=== PATIENT | male | born 1940 | race Caucasian/White ===

== ENCOUNTER 2024-07-16 11:08 | Outpatient (AMB) | payer MEDICARE, BC, SELFPAY ==
[2024-07-16 11:15] VITALS: BP 121/66; PULSE 53; RESP 18; TEMP 36.5; O2SAT 97; BMI 27.5
--- NOTE | 2024-07-16 11:15 | ORTHONT_ITS ---
Vital signs 07/16/24 11:15 Height 1.7 m Height Method Stated Weight 79.577 kg Weight Measurement Method Standing Scale BMI 27.5 BP 121/66 Blood Pressure Source Automatic Cuff Blood Pressure Location Right Upper Arm Position Sitting Respiration 18 Pulse 53 L Pulse Source Monitor Temp 97.7 F Temp Source Temporal Artery Scan Pulse Oximetry (%) 97 Oxygen Delivery Method Room Air Med/Allergies Allergies & Medications Allergies Penicillins Allergy (Unknown, Verified 07/16/24 11:15) RASH Sulfa (Sulfonamide Antibiotics) Allergy (Unknown, Verified 07/16/24 11:15) RASH Medication Reconciliation benazepril 20 mg tablet 20 mg PO QDAY ##0 12/09/13 [History Confirmed 07/16/24] paroxetine HCl 30 mg tablet 40 mg PO QDAY ##0 12/09/13 [History Confirmed 07/16/24] calcitriol 0.5 mcg capsule 0.5 mcg PO HS ##90 08/20/17 [History Confirmed 07/16/24] pantoprazole 40 mg tablet,delayed release 40 mg PO QDAY ##90 08/20/17 [History Confirmed 07/16/24] hydralazine 50 mg tablet 50 mg PO BID 12/06/21 [History Confirmed 07/16/24] rosuvastatin 20 mg tablet 10 mg PO HS 12/06/21 [History Confirmed 07/16/24] aspirin 81 mg chewable tablet 81 mg PO DAILY #1 tab 12/08/21 [Rx Confirmed 07/16/24] hydrochlorothiazide 12.5 mg capsule 12.5 mg PO QDAY 12/08/21 [History Confirmed 07/16/24] amiodarone 200 mg tablet 200 mg PO DAILY 06/08/24 [History Confirmed 07/16/24] allopurinol 100 mg tablet 100 mg PO 1XD 06/16/24 [History Confirmed 07/16/24] apixaban 5 mg tablet (Eliquis) 5 mg PO BID 06/16/24 [History Confirmed 07/16/24] metoprolol succinate 50 mg tablet,extended release 24 hr 50 mg PO QDAY 06/16/24 [History Confirmed 07/16/24] levofloxacin 250 mg tablet 250 mg PO QDAY #10 tabs 06/17/24 [Rx Confirmed 07/16/24] tamsulosin 0.4 mg capsule 0.4 mg PO QDAY 30 days #30 caps 06/17/24 [Rx Confirmed 07/16/24] dutasteride 0.5 mg capsule (Avodart) 0.5 mg PO QDAY 06/29/24 [History Confirmed 07/16/24] Subjective Visit Visit for: follow up visit, post op #1 and knee Immunization / Flu Flu Vaccine in the Last 12 Months: No Flu Vaccine Exclusion Criteria: No Exclusion Criteria History of Present Illness Chief complaint: POST OP FOLLOW UP Patient is a 84-year-old male who is status post a right total knee replacement. He is doing very well now. This was very different than when I saw him at the [facility] 2 weeks ago. He is walking without any pain. Pain Pain level (0-10): 0 Pain duration: ALL DAY Pain location: anterior Pain quality: sharp, dull and aching Pain timing: increases with activity and stairs Associated signs & symptoms: none Ambulatory data Ambulatory device: none Treatments Improvement with previous injections: No Improvement with PT: No Improvement with NSAIDS: no Review of Systems Review of Systems: All systems negative unless otherwise noted in HPI. Exam Exam Patient is in no acute distress and is cooperative with the examination today. Breathing is nonlabored. Patient has a normal mood and affect. Bilateral extremities were evaluated and demonstrates sensation intact to light touch. Palpable pedal pulses are present. No significant edema is present. Bilateral hips were examined. The patient has no pain with log roll of the hips. Internal rotation to 30 degrees and external rotation to 30 degrees is painless. Negative FADIR. Right total knee replacement is in good alignment position. Range of motion 0 to 100 degrees Assessment and Plan Problem List (1) History of total right knee replacement: Status: Acute Plan: Patient is a pleasant 84-year-old male who is status post right total knee replacement. We recommend continued physical therapy. He is doing well. Advanced Care Planning Discussion Advance care planning discussed with:: patient Office Procedures GNS Level of Care Nursing/Assessment Patient Status: Established Patient Nursing Assessment/Reassesment: Medication Reconciliation, Update PMH in EMR and Vital Signs Coordination of Care: Complex Care and Chronic Disease 1-5, Education Complex Pt/Fam, Consent,records obtained, informed consent, 1 Ins Authorization, Results/Orders obtained and Staff clarify orders Established Patient Charge Established Patient Point Assignment: 110 Established Patient Point Charge: EP Level 3 (80-115) Past Medical History Past Medical History Have you ever been diagnosed with any of the following: Neurological Problems Seizures: No Cardiology Problems Myocardial Infarction: Yes Atrial Fibrillation: Yes Coronary Artery Disease: Yes Hypercholesterolemia: Yes Congestive Heart Failure: No Edema: Yes Hypertension: Yes Respiratory Problems Chronic Obstructive Pulmonary Disease (COPD): No Smoking: No Smoking Exposure: No Stomache/Intestinal Problems Hepatitis: No Hemorrhoids: No Genital/Urinary Problems Renal Disease: Yes Musculoskeletal Problems Arthritis: Yes Gout: Yes Fractures: Yes Head,Eye,Nose,Throat Problems Cataracts: Yes Endocrine Problems Diabetes Mellitus Type 1: No Diabetes Mellitus Type 2: No Psychologic Problems Depression: Yes Anxiety: Yes Other Problems Hospitalization: Yes Shingles: No Falls: No Blood Transfusions: No Blood Transfusion Reaction: No Anesthesia Reactions: No Chemotherapy: No Radiation Therapy: No Chicken Pox: Yes Measles: Yes Cancer: No Surgical History Coronary Artery Bypass Graft: Yes
== END 2024-07-16 11:46 | disposition home or self-care (01) ==
LOC: HODSRG 11:08
PROVIDERS: PCP Internal Medicine; Referring Provider Internal Medicine; Supervising Provider Orthopaedic Surgery Adult Reconstructive Orthopaedic Surgery; Visit Provider Orthopaedic Surgery Adult Reconstructive Orthopaedic Surgery
DX: Z47.1 Aftercare following joint replacement surgery (principal); Z96.651 Presence of right artificial knee joint; I10 Essential (primary) hypertension; E78.00 Pure hypercholesterolemia, unspecified; I25.10 Atherosclerotic heart disease of native coronary artery without angina pectoris; I25.2 Old myocardial infarction; I48.91 Unspecified atrial fibrillation
CPT/HCPCS: 99213; G0463

== ENCOUNTER → 2024-07-19 | Outpatient (CLI) | payer MEDICARE, BC, SELFPAY ==
[2024-07-19 11:18] LABS: Collection Type, Urine Clean Catch; Squamous Epithelial Cell,Urine 0 /hpf (0-5)
[2024-07-19 13:03] LABS: Bacteria,Urine Rare; Bilirubin,Urine Negative (Negative); Blood,Urine Negative (Negative); Calcium Oxalate Crystals,Urine 1+; Clarity,Urine Clear (Clear/Hazy); Color,Urine Lt-Yellow (Lt Yel-Yel); Glucose, Urine Negative (Negative); Ketones,Urine Negative (Negative); Leukocyte Esterase,Urine Positive (Negative); Nitrite,Urine Negative (Negative); Protein,Urine Negative (Neg - Trace); RBC,Urine 1 /hpf (0-3); Specific Gravity,Urine 1.022 (1.001-1.035); Urobilinogen,Urine Negative mg/dL (0.0-1.0); WBC,Urine 29 /hpf (0-5)
[2024-07-19 13:09] LABS: Culture Indicated,Urine Yes
== END | disposition home or self-care (01) ==
LOC: SLDO 11:10
PROVIDERS: Referring Provider Internal Medicine; Visit Provider Internal Medicine
DX: N39.0 Urinary tract infection, site not specified (principal)
CPT/HCPCS: 81001; 87077; 87086; 87186

== ENCOUNTER → 2024-08-10 | Outpatient (CLI) | payer MEDICARE, BC, SELFPAY ==
[2024-08-10 10:15] LABS: Collection Type, Urine Clean Catch; Squamous Epithelial Cell,Urine 0 /hpf (0-5)
[2024-08-10 10:34] LABS: Bacteria,Urine 1+; Bilirubin,Urine Negative (Negative); Blood,Urine Negative (Negative); Clarity,Urine Clear (Clear/Hazy); Color,Urine Lt-Yellow (Lt Yel-Yel); Glucose, Urine Negative (Negative); Ketones,Urine Negative (Negative); Leukocyte Esterase,Urine Positive (Negative); Nitrite,Urine Negative (Negative); PH,Urine 5.5 (5.0-7.0); Protein,Urine Negative (Neg - Trace); RBC,Urine 7 /hpf (0-3); Specific Gravity,Urine 1.018 (1.001-1.035); Urobilinogen,Urine Negative mg/dL (0.0-1.0); WBC,Urine 34 /hpf (0-5)
[2024-08-10 10:35] LABS: Culture Indicated,Urine Yes
== END | disposition home or self-care (01) ==
LOC: SLAB 09:56
PROVIDERS: PCP Internal Medicine; Referring Provider Internal Medicine; Visit Provider Internal Medicine
DX: N39.0 Urinary tract infection, site not specified (principal)
CPT/HCPCS: 81001; 87086

== ENCOUNTER → 2024-09-10 | Outpatient (CLI) | payer MEDICARE, BC, SELFPAY ==
--- NOTE | 2024-09-10 12:37 | XR_ITS ---
Examination: Right knee 4 views TECHNIQUE: Standing AP oblique lateral axial right knee 4 views Exam date and time: September 10, 2024 1252 hours INDICATIONS: Status post knee replacement 3 months ago. FINDINGS: Significant osteopenia Total right knee arthroplasty. Satisfactory alignment. No fracture. No loosening of the prosthetic components. No patellar dislocation IMPRESSION: Total right knee arthroplasty with satisfactory alignment
== END | disposition home or self-care (01) ==
LOC: CDIM 12:26
PROVIDERS: Referring Provider Orthopaedic Surgery Adult Reconstructive Orthopaedic Surgery; Visit Provider Orthopaedic Surgery Adult Reconstructive Orthopaedic Surgery
DX: M17.11 Unilateral primary osteoarthritis, right knee (principal); Z96.651 Presence of right artificial knee joint
CPT/HCPCS: 73564

== ENCOUNTER 2024-09-14 10:07 | Outpatient (AMB) | payer MEDICARE, BC, SELFPAY ==
[2024-09-14 10:26] VITALS: BP 120/61; PULSE 43; RESP 18; TEMP 36.3; O2SAT 94; BMI 27.5
--- NOTE | 2024-09-14 10:26 | PD.ORTHCLVIS ---
Vital signs 09/14/24 10:26 Height 1.7 m Height Method Stated Weight 79.577 kg Weight Measurement Method Standing Scale BMI 27.5 BP 120/61 Blood Pressure Source Automatic Cuff Blood Pressure Location Left Upper Arm Position Sitting Respiration 18 Pulse 43 L Pulse Source Monitor Temp 97.4 F Temp Source Temporal Artery Scan Pulse Oximetry (%) 94 L Oxygen Delivery Method Room Air Med/Allergies Allergies & Medications Allergies Penicillins Allergy (Unknown, Verified 09/14/24 10:27) RASH Sulfa (Sulfonamide Antibiotics) Allergy (Unknown, Verified 09/14/24 10:27) RASH Medication Reconciliation benazepril 20 mg tablet 20 mg PO QDAY ##0 12/09/13 [History Confirmed 09/14/24] paroxetine HCl 30 mg tablet 40 mg PO QDAY ##0 12/09/13 [History Confirmed 09/14/24] calcitriol 0.5 mcg capsule 0.5 mcg PO HS ##90 08/20/17 [History Confirmed 09/14/24] pantoprazole 40 mg tablet,delayed release 40 mg PO QDAY ##90 08/20/17 [History Confirmed 09/14/24] hydralazine 50 mg tablet 50 mg PO BID 12/06/21 [History Confirmed 09/14/24] rosuvastatin 20 mg tablet 10 mg PO HS 12/06/21 [History Confirmed 09/14/24] aspirin 81 mg chewable tablet 81 mg PO DAILY #1 tab 12/08/21 [Rx Confirmed 09/14/24] hydrochlorothiazide 12.5 mg capsule 12.5 mg PO QDAY 12/08/21 [History Confirmed 09/14/24] amiodarone 200 mg tablet 200 mg PO DAILY 06/08/24 [History Confirmed 09/14/24] allopurinol 100 mg tablet 100 mg PO 1XD 06/16/24 [History Confirmed 09/14/24] apixaban 5 mg tablet (Eliquis) 5 mg PO BID 06/16/24 [History Confirmed 09/14/24] metoprolol succinate 50 mg tablet,extended release 24 hr 50 mg PO QDAY 06/16/24 [History Confirmed 09/14/24] levofloxacin 250 mg tablet 250 mg PO QDAY #10 tabs 06/17/24 [Rx Confirmed 09/14/24] tamsulosin 0.4 mg capsule 0.4 mg PO QDAY 30 days #30 caps 06/17/24 [Rx Confirmed 09/14/24] dutasteride 0.5 mg capsule (Avodart) 0.5 mg PO QDAY 06/29/24 [History Confirmed 09/14/24] Exam Exam Patient is in no acute distress and is cooperative with the examination today. Breathing is nonlabored. Patient has a normal mood and affect. Bilateral extremities were evaluated and demonstrates sensation intact to light touch. Palpable pedal pulses are present. No significant edema is present. Bilateral hips were examined. The patient has no pain with log roll of the hips. Internal rotation to 30 degrees and external rotation to 30 degrees is painless. Negative FADIR. Right total knee replacement is in good alignment position. Range of motion 0 to 100 degrees Assessment and Plan Problem List (1) History of total right knee replacement: Status: Acute Plan: Patient is a pleasant 84-year-old male who is status post right total knee replacement. We recommend continued physical therapy. He is doing well. Recommend knee cortisone injection as patient would like to proceed with conservative treatment at this time. The risks and benefits of the procedure were reviewed with the patient and patient gave verbal consent to continue with the procedure. Procedure: performed by Dr. Hillman Using sterile technique the left knee was thoroughly prepped with alcohol, and approximately 1 cc of Kenalog 40 mg/mL and 4 cc of 1% lidocaine was injected without resistance into the medial tibial femoral joint space. The patient tolerated the procedure. Advanced Care Planning Discussion Advance care planning discussed with:: patient Office Procedures GNS Level of Care Nursing/Assessment Patient Status: Established Patient Nursing Assessment/Reassesment: Medication Reconciliation, Update PMH in EMR and Vital Signs Coordination of Care: Complex Care and Chronic Disease 1-5, Education Complex Pt/Fam, Consent,records obtained, informed consent, 1 Ins Authorization, Results/Orders obtained and Staff clarify orders Established Patient Charge Established Patient Point Assignment: 110 Established Patient Point Charge: EP Level 3 (80-115) Surgical Proc/IM SQ injection Major Surgical Procedure: Yes (KNEE INJECTION) Medication Given Medication Given Medication Given: Yes Documented Dose Given: 4 Route: Infiitration Medication Given Medication Given Medication Given: Yes Documented Dose Given: 1 Route: Infiitration Office Meds Xylocaine 10 mg/mL (1 %) injection solution Performing Provider: Eyad Hillman MD Performing Location: [facility] Administered by: Eyad Hillman MD on 09/14/24 10:44 Dose Route Admin Location Dispensed Lot Number Expiration Date [facility] Health Professor 20 mL Infiltration 20 mL [id number] 05/14/27 95541-917-44 [facility] triamcinolone acetonide 40 mg/mL suspension for injection Performing Provider: Eyad Hillman MD Performing Location: [facility] Administered by: Eyad Hillman MD on 09/14/24 10:44 Dose Route Admin Location Dispensed Lot Number Expiration Date [facility] Health Professor 40 mg Infiltration KNEE 1 mL [id number] 02/11/26 6499-2862-44 TEVA PARENTERAL MA Intake Visit Data Collection New Patient or Established: Established Patient (seen at [facility] within 3 years) Reason for Visit:: FOLLOW UP TKA Seen by Clinical Staff ONLY (RN/MA): No Mobile Marketing Specialist Required: No PCP or OBGYN visit in last 3 months: Yes Hx Now: No Do You Feel Safe at Home: Yes Authorities Contacted: N/A Questionairres Past Medical History Past Medical History Have you ever been diagnosed with any of the following: Neurological Problems Seizures: No Cardiology Problems Myocardial Infarction: Yes Atrial Fibrillation: Yes Coronary Artery Disease: Yes Hypercholesterolemia: Yes Congestive Heart Failure: No Edema: Yes Hypertension: Yes Respiratory Problems Chronic Obstructive Pulmonary Disease (COPD): No Smoking: No Smoking Exposure: No Stomache/Intestinal Problems Hepatitis: No Hemorrhoids: No Genital/Urinary Problems Renal Disease: Yes Musculoskeletal Problems Arthritis: Yes Gout: Yes Fractures: Yes Head,Eye,Nose,Throat Problems Cataracts: Yes Endocrine Problems Diabetes Mellitus Type 1: No Diabetes Mellitus Type 2: No Psychologic Problems Depression: Yes Anxiety: Yes Other Problems Hospitalization: Yes Shingles: No Falls: No Blood Transfusions: No Blood Transfusion Reaction: No Anesthesia Reactions: No Chemotherapy: No Radiation Therapy: No Chicken Pox: Yes Measles: Yes Cancer: No Surgical History Coronary Artery Bypass Graft: Yes Subjective Visit Visit for: follow up visit Immunization / Flu Flu Vaccine in the Last 12 Months: No Flu Vaccine Exclusion Criteria: No Exclusion Criteria History of Present Illness Chief complaint: right knee arthritis Heladio is a pleasant 84 yo male s/p R TKA. He isdoing well. He has minimal pain, He reports his left knee osteoarthritis bothers him more, Pain Pain level (0-10): 4 Pain duration: WITH MOVEMENT Pain location: inside (medial) Pain quality: dull and aching Pain timing: increases with activity Ambulatory data Ambulatory device: none Walking distance (blocks): 1 Treatments Improvement with previous injections: No Improvement with PT: No Improvement with NSAIDS: no Review of Systems Review of Systems: All systems negative unless otherwise noted in HPI.
== END 2024-09-14 10:42 | disposition home or self-care (01) ==
LOC: HODSRG 10:07
PROVIDERS: PCP Internal Medicine; Referring Provider Internal Medicine; Supervising Provider Orthopaedic Surgery Adult Reconstructive Orthopaedic Surgery; Visit Provider Orthopaedic Surgery Adult Reconstructive Orthopaedic Surgery
DX: M17.12 Unilateral primary osteoarthritis, left knee (principal); Z96.651 Presence of right artificial knee joint; I10 Essential (primary) hypertension; E78.00 Pure hypercholesterolemia, unspecified; I25.10 Atherosclerotic heart disease of native coronary artery without angina pectoris; I25.2 Old myocardial infarction; I48.91 Unspecified atrial fibrillation
CPT/HCPCS: 20610; 99213; J3301; J3490; G0463

== ENCOUNTER → 2024-11-12 | Outpatient (CLI) | payer MEDICARE, BC, SELFPAY ==
[2024-11-12 10:27] LABS: Misc Send Out* See Sep Rpt
[2024-11-12 10:35] LABS: Collection Type, Urine Clean Catch; Squamous Epithelial Cell,Urine 0 /hpf (0-5)
[2024-11-12 11:06] LABS: Basophils % (Auto) 0 % (0-2.5); Eosinophils # (Auto) 0.2 Thou/mm3 (0.0-0.5); Eosinophils % (Auto) 2 % (0-10); Hemoglobin 12.8 g/dL (13.5-16.0); Immature Granulocytes % (Auto) 1 % (0-0); Immature Granulocytes Auto 0.09 Thou/mm3 (0.00-0.00); Lymphocytes # (Auto) 0.8 Thou/mm3 (1.0-4.8); Lymphocytes % (Auto) 10 % (10-50); Mean Corpuscular HGB Conc 32.8 g/dl (31.0-37.0); Mean Corpuscular Hemoglobin 29.7 pg (25.0-35.0); Mean Corpuscular Volume 91 fL (80-100); Monocytes # (Auto) 0.9 Thou/mm3 (0.0-0.8); Monocytes % (Auto) 11 % (0-12); Neutrophils # (Auto) 6.2 Thou/mm3 (1.8-7.7); Neutrophils % (Auto) 76 % (37-80); Nucleated Red Blood Cell % 0 /100 WBC (0); Platelet Count 270 Thou/mm3 (140-440); RDW Standard Deviation 49.9 fL (35.1-43.9); Red Blood Count 4.31 Miln/mm3 (4.50-5.90); White Blood Count 8.2 Thou/mm3 (3.8-10.6)
[2024-11-12 11:17] LABS: Bilirubin,Urine Negative (Negative); Blood,Urine Negative (Negative); Clarity,Urine Clear (Clear/Hazy); Color,Urine Lt-Yellow (Lt Yel-Yel); Culture Indicated,Urine Not Indicated; Glucose, Urine Negative (Negative); Ketones,Urine Negative (Negative); Leukocyte Esterase,Urine Positive (Negative); Nitrite,Urine Negative (Negative); Protein,Urine Negative (Neg - Trace); RBC,Urine 2 /hpf (0-3); Urobilinogen,Urine Negative mg/dL (0.0-1.0); WBC,Urine 6 /hpf (0-5)
[2024-11-12 11:18] LABS: Parathyroid Hormone Intact 36.4 pg/ml (18.5-88.0)
[2024-11-12 11:22] LABS: Alanine Aminotransferase 28 U/L (10-49); Albumin, Serum 3.4 gm/dL (3.4-4.8); Albumin/Globulin Ratio 1.3 (1.2-2.2); Alkaline Phosphatase 124 U/L (46-116); Anion Gap 7 (7-16); Aspartate Amino Transferase 32 U/L (0-34); BUN/Creatinine Ratio 21 Ratio (12-20); Bilirubin,Total 0.7 mg/dL (0.3-1.2); Blood Urea Nitrogen 31 mg/dL (9-23); Calcium 8.9 mg/dL (8.3-10.6); Calcium (Corrected) 9.4 mg/dL (8.5-10.1); Carbon Dioxide 28.9 mMol/L (20.0-31.0); Cardiac Risk Estimate 2.1 RATIO (4.0-6.7); Chloride 108 mMol/L (98-107); Cholesterol 79 mg/dL (132-200); Creatinine (Component) 1.5 mg/dL (0.6-1.3); Globulin 2.6 gm/dL (2.3-3.5); Glucose 97 mg/dL (74-106); HDL Cholesterol 38 mg/dL (40-60); LDL Cholesterol,Calculated 24 mg/dL (0-130); Osmolality,Calculated 293 (275-295); Potassium 4.2 mMol/L (3.4-5.1); Sodium 144 mMol/L (136-145); Thyroid Stimulating Hormone 3.33 uIU/mL (0.55-4.78); Triglycerides 84 mg/dL (30-150); eGFR 46 See Note
[2024-11-12 11:24] LABS: Creatinine MALB Rnd Ur 75 mg/dL (30-125); Microalbumin, Random Urine < 3 mg/L (0-300)
== END | disposition home or self-care (01) ==
LOC: COPL 10:07
PROVIDERS: PCP Internal Medicine; Referring Provider Urology; Visit Provider Internal Medicine Cardiovascular Disease
DX: N39.0 Urinary tract infection, site not specified (principal); E78.5 Hyperlipidemia, unspecified; I12.9 Hypertensive chronic kidney disease with stage 1 through stage 4 chronic kidney disease, or unspecified chronic kidney disease; N18.31 Chronic kidney disease, stage 3a
CPT/HCPCS: 36415; 80053; 80061; 81001; 82043; 82570; 83970; 84443; 85025

== ENCOUNTER → 2025-01-14 | Outpatient (CLI) | payer MEDICARE, BC, SELFPAY ==
[2025-01-14 10:24] LABS: Albumin, Serum 3.7 gm/dL (3.4-4.8); Anion Gap 9 (7-16); BUN/Creatinine Ratio 18 Ratio (12-20); Blood Urea Nitrogen 28 mg/dL (9-23); Calcium 8.7 mg/dL (8.3-10.6); Calcium (Corrected) 8.9 mg/dL (8.5-10.1); Carbon Dioxide 27.9 mMol/L (20.0-31.0); Chloride 106 mMol/L (98-107); Creatinine (Component) 1.6 mg/dL (0.6-1.3); Glucose 106 mg/dL (74-106); Osmolality,Calculated 290 (275-295); Phosphorous 2.9 mg/dL (2.4-5.1); Potassium 3.9 mMol/L (3.4-5.1); Sodium 143 mMol/L (136-145); eGFR 42 See Note
== END | disposition home or self-care (01) ==
LOC: COPL 08:16
PROVIDERS: PCP Internal Medicine; Referring Provider Internal Medicine; Visit Provider Internal Medicine
DX: N17.9 Acute kidney failure, unspecified (principal)
CPT/HCPCS: 36415; 80069

== ENCOUNTER → 2025-02-08 | Outpatient (BNVA) | payer MEDICARE, BC, SELFPAY | END | disposition home or self-care (01) | PROVIDERS: Visit Provider Urology | DX: N40.1 Benign prostatic hyperplasia with lower urinary tract symptoms (principal); N13.8 Other obstructive and reflux uropathy; R31.29 Other microscopic hematuria; I12.9 Hypertensive chronic kidney disease with stage 1 through stage 4 chronic kidney disease, or unspecified chronic kidney disease; N18.30 Chronic kidney disease, stage 3 unspecified; E78.5 Hyperlipidemia, unspecified; I25.10 Atherosclerotic heart disease of native coronary artery without angina pectoris; Z95.1 Presence of aortocoronary bypass graft; Z95.5 Presence of coronary angioplasty implant and graft; M19.90 Unspecified osteoarthritis, unspecified site; I48.91 Unspecified atrial fibrillation | CPT/HCPCS: 81003; 99212; G0463 ==

== ENCOUNTER 2025-03-15 10:24 | Outpatient (AMB) | payer MEDICARE, BC, SELFPAY ==
[2025-03-15 10:35] VITALS: BP 133/64; PULSE 58; RESP 19; TEMP 36.5; O2SAT 95; BMI 24.0
--- NOTE | 2025-03-15 10:35 | ORTHONT_ITS ---
Vital signs 03/15/25 10:35 Height 1.7 m Height Method Stated Weight 69.456 kg Weight Measurement Method Standing Scale BMI 24.0 BP 133/64 H Blood Pressure Source Automatic Cuff Blood Pressure Location Right Upper Arm Position Sitting Respiration 19 Pulse 58 L Pulse Source Monitor Temp 97.7 F Temp Source Temporal Artery Scan Pulse Oximetry (%) 95 Oxygen Delivery Method Room Air Med/Allergies Allergies & Medications Allergies Penicillins Allergy (Unknown, Verified 03/15/25 10:36) RASH Sulfa (Sulfonamide Antibiotics) Allergy (Unknown, Verified 03/15/25 10:36) RASH Medication Reconciliation benazepril 20 mg tablet 20 mg PO QDAY ##0 12/09/13 [History Confirmed 03/15/25] paroxetine HCl 30 mg tablet 40 mg PO QDAY ##0 12/09/13 [History Confirmed 03/15/25] calcitriol 0.5 mcg capsule 0.5 mcg PO HS ##90 08/20/17 [History Confirmed 03/15/25] pantoprazole 40 mg tablet,delayed release 40 mg PO QDAY ##90 08/20/17 [History Confirmed 03/15/25] hydralazine 50 mg tablet 50 mg PO BID 12/06/21 [History Confirmed 03/15/25] rosuvastatin 20 mg tablet 10 mg PO HS 12/06/21 [History Confirmed 03/15/25] aspirin 81 mg chewable tablet 81 mg PO DAILY #1 tab 12/08/21 [Rx Confirmed 03/15/25] hydrochlorothiazide 12.5 mg capsule 12.5 mg PO QDAY 12/08/21 [History Confirmed 03/15/25] amiodarone 200 mg tablet 200 mg PO DAILY 06/08/24 [History Confirmed 03/15/25] allopurinol 100 mg tablet 100 mg PO 1XD 06/16/24 [History Confirmed 03/15/25] apixaban 5 mg tablet (Eliquis) 5 mg PO BID 06/16/24 [History Confirmed 03/15/25] metoprolol succinate 50 mg tablet,extended release 24 hr 50 mg PO QDAY 06/16/24 [History Confirmed 03/15/25] levofloxacin 250 mg tablet 250 mg PO QDAY #10 tabs 06/17/24 [Rx Confirmed 03/15/25] tamsulosin 0.4 mg capsule 0.4 mg PO QDAY 30 days #30 caps 06/17/24 [Rx Confirmed 03/15/25] dutasteride 0.5 mg capsule (Avodart) 0.5 mg PO QDAY 06/29/24 [History Confirmed 03/15/25] Exam Exam Patient is in no acute distress and is cooperative with the examination today. Breathing is nonlabored. Patient has a normal mood and affect. Bilateral extremities were evaluated and demonstrates sensation intact to light touch. Palpable pedal pulses are present. No significant edema is present. Bilateral hips were examined. The patient has no pain with log roll of the hips. Internal rotation to 30 degrees and external rotation to 30 degrees is painless. Negative FADIR. Right total knee replacement is in good alignment position. Range of motion 0 to 100 degrees Assessment and Plan Problem List (1) History of total right knee replacement: Status: Acute Plan: Patient is a pleasant 84-year-old male who is status post right total knee replacement. We recommend continued physical therapy. He is doing well. Recommend knee cortisone injection as patient would like to proceed with conservative treatment at this time. The risks and benefits of the procedure were reviewed with the patient and patient gave verbal consent to continue with the procedure. Procedure: performed by Dr. Hillman Using sterile technique the left knee was thoroughly prepped with alcohol, and approximately 1 cc of Kenalog 40 mg/mL and 4 cc of 1% lidocaine was injected without resistance into the medial tibial femoral joint space. The patient tolerated the procedure. He has tried multiple injections on the left knee. We will proceed with a left total knee replacement after has been 3 months from the last injection. He will need medical and cardiac clearance The nature and purpose of the total knee replacement, alternative method(s) of treatment, the material risks involved, and the possibility of complications were fully explained to the patient. The patient does NOT have any of the following contraindications to TKA: - Active infection of the knee joint, OR - Active systemic bacteremia, OR - Active skin infection or open wound at surgical site, OR - Neuropathic arthritis, OR - Severe, rapidly progressive neurological disease, OR - Severe medical condition that makes risks of surgery outweigh the potential benefit The patient was told the most common risks and complications associated with a total knee replacement include, but are not limited to: blood clots in the leg, fatal pulmonary embolism, dislocation of the prosthesis, intraoperative and postoperative fractures of the femur or tibia, infection, failure of the prosthesis or grafting materials, complications from anesthesia, reactions to blood transfusions, postoperative leg length inequality, instability of the knee replacement, nerve damage or injury, vascular injury, delayed wound healing, infection, other injury or even . In addition, there are risks associated with anesthesia given during this operation. Also, the patient was told that after undergoing a total knee replacement there may still be persistent pain or disability. The patient was informed that the success of this operation in part depends upon the mechanical devices which are going to be implanted and that these devices can fail or malfunction, and may need to be repaired or replaced and there are no guarantees as to the longevity of this device or its parts and that it or its parts could fail prematurely. The patient was also notified that during the course of surgery, there may be a need to use bone graft from donors, and that any bone graft used will be carefully screened for communicable diseases, including AIDS, hepatitis, Stas-Creutzfeldt, or other diseases, but despite the screening procedures, there is a small chance that they could contract one of these diseases. Finally, the patient was asked to follow completely and fully with all advice and recommended treatments, and that recovery and ultimate outcome are affected by their compliance with recommended treatment. We discussed the risks, benefits and treatment alternatives, and the patient is interested in proceeding with surgery. We will try to set this up as expeditiously as possible. Advanced Care Planning Discussion Advance care planning discussed with:: patient Office Procedures GNS Level of Care Nursing/Assessment Patient Status: Established Patient Nursing Assessment/Reassesment: Medication Reconciliation, Update PMH in EMR and Vital Signs Coordination of Care: Complex Care and Chronic Disease 1-5, Education Complex Pt/Fam, Consent,records obtained, informed consent, Results/Orders obtained and Staff clarify orders Established Patient Charge Established Patient Point Assignment: 95 Established Patient Point Charge: EP Level 3 (80-115) Surgical Proc/IM SQ injection Major Surgical Procedure: Yes (KNEE INJECTION ) Medication Given Medication Given Medication Given: Yes Documented Dose Given: 4 Route: Infiitration Medication Given Medication Given Medication Given: Yes Documented Dose Given: 1 Route: Infiitration Office Meds Xylocaine 10 mg/mL (1 %) injection solution Performing Provider: Eyad Hillman MD Performing Location: [facility] Administered by: Eyad Hillman MD on 03/15/25 11:27 Dose Route Admin Location Dispensed Lot Number Expiration Date [facility] Technical Support Analyst 20 mL Infiltration 20 mL [id number] 01/13/28 73001-078-11 RAJEEV CHAPPELL triamcinolone acetonide 40 mg/mL suspension for injection Performing Provider: Eyad Hillman MD Performing Location: [facility] Administered by: Eyad Hillman MD on 03/15/25 11:27 Dose Route Admin Location Dispensed Lot Number Expiration Date [facility] Technical Support Analyst 40 mg intra-articular KNEE 1 mL [id number] 10/14/26 61463-555-19 HARSHAL WATTS [place] Intake Visit Data Collection New Patient or Established: Established Patient (seen at [facility] within 3 years) Reason for Visit:: KNEE PAIN Seen by Clinical Staff ONLY (RN/MA): No Verbal consent obtained for Telemed visit?: No Frame Runner Required: No PCP or OBGYN visit in last 3 months: Yes Hx Now: No Do You Feel Safe at Home: Yes Authorities Contacted: N/A Questionairres Past Medical History Past Medical History Have you ever been diagnosed with any of the following: Neurological Problems Seizures: No Cardiology Problems Myocardial Infarction: Yes Atrial Fibrillation: Yes Coronary Artery Disease: Yes Hypercholesterolemia: Yes Congestive Heart Failure: No Edema: Yes Hypertension: Yes Respiratory Problems Chronic Obstructive Pulmonary Disease (COPD): No Smoking: No Smoking Exposure: No Stomache/Intestinal Problems Hepatitis: No Hemorrhoids: No Genital/Urinary Problems Renal Disease: Yes Musculoskeletal Problems Arthritis: Yes Gout: Yes Fractures: Yes Head,Eye,Nose,Throat Problems Cataracts: Yes Endocrine Problems Diabetes Mellitus Type 1: No Diabetes Mellitus Type 2: No Psychologic Problems Depression: Yes Anxiety: Yes Other Problems Hospitalization: Yes Shingles: No Falls: No Blood Transfusions: No Blood Transfusion Reaction: No Anesthesia Reactions: No Chemotherapy: No Radiation Therapy: No Chicken Pox: Yes Measles: Yes Cancer: No Surgical History Coronary Artery Bypass Graft: Yes Subjective Visit Visit for: follow up visit and knee Immunization / Flu Flu Vaccine in the Last 12 Months: No Flu Vaccine Exclusion Criteria: No Exclusion Criteria History of Present Illness Chief complaint: right knee arthritis Heladio is a pleasant 84 yo male s/p R TKA. He isdoing well. He has minimal pain, He reports his left knee osteoarthritis bothers him more. he would like a left knee injection today Personal History Occupation: RETIRED Red flag PMH: BMI Pain Pain level (0-10): 4 Pain duration: WITH MOVEMENT Pain location: inside (medial), outside (lateral) and anterior Pain quality: sharp, dull and aching Pain timing: increases with activity Associated signs & symptoms: none Ambulatory data Ambulatory device: walker and none Walking distance (blocks): 1 Treatments Improvement with previous injections: No Improvement with PT: No Improvement with NSAIDS: no Review of Systems Review of Systems: All systems negative unless otherwise noted in HPI.
--- NOTE | 2025-03-15 10:36 | XR_ITS ---
Examination: Bilateral knees 2 views Right lateral knee left lateral knee 2 views Bilateral axial knees single view TECHNIQUE: Bilateral AP knees standing single view, bilateral PA knees standing single view flexion Standing right lateral knee left lateral knee 2 views Bilateral axial knees single view total 5 views Date and time: March 15, 2025 1101 hours INDICATIONS: Left knee pain beginning 10 years ago. FINDINGS: Advanced narrowing medial joint space left knee Advanced osteoarthritis left patellofemoral joint Ossified joint bodies in the suprapatellar joint space, the largest 8 mm and posterior joint space, the largest 9 mm No fracture Total right knee arthroplasty. Satisfactory alignment. No loosening of the prosthetic components IMPRESSION: Advanced narrowing medial joint space left knee Advanced osteoarthritis left patellofemoral joint
== END 2025-03-15 10:51 | disposition home or self-care (01) ==
LOC: HODSRG 10:24
PROVIDERS: Supervising Provider Orthopaedic Surgery Adult Reconstructive Orthopaedic Surgery; Visit Provider Orthopaedic Surgery Adult Reconstructive Orthopaedic Surgery
DX: M17.0 Bilateral primary osteoarthritis of knee (principal); Z96.651 Presence of right artificial knee joint; I10 Essential (primary) hypertension; E78.00 Pure hypercholesterolemia, unspecified; I25.10 Atherosclerotic heart disease of native coronary artery without angina pectoris; I48.91 Unspecified atrial fibrillation; I25.2 Old myocardial infarction
CPT/HCPCS: 20610; 73564; 99213; J3301; J3490; G0463

== ENCOUNTER → 2025-03-23 | Outpatient (CLI) | payer MEDICARE, BC, SELFPAY ==
--- NOTE | 2025-03-23 15:18 | XR_ITS ---
Examination: CT abdomen and pelvis without contrast. Coronal 3-D reconstructions. Sagittal 2-D reconstructions. Date and time of exam:April 02, 2025 1533 hours INDICATIONS: Lower abdominal and back pain beginning one week ago COMPARISON: 06/14/2024 CTDI: vol (mGy): 6.80 DLP: (mGycm): 136 Technique: Axial images of the abdomen have been obtained, 3 mm slice thickness Intravenous contrast material has not been administered. Low dose protocols were performed. One or more of the following dose reduction techniques were used; automated exposure control, adjustment of the mA and/or KV according to patient size, use of iterative reconstruction technique. Findings: Mild to moderate enlargement cardiac contour No focal liver lesions Tiny gallstone No pancreatic mass 4.4 cm posterior right renal cyst 2 mm lower pole left renal calculus, no hydronephrosis or ureteral calculi Heavy abdominal aortic calcification. Normal appendix Colonic diverticulosis, no diverticulitis Urinary bladder wall thickening up to 3 mm No prostatomegaly Severe osteopenia IMPRESSION: Recommend hepatobiliary sonography to confirm cholelithiasis 4.4 cm posterior right renal cyst 2 mm lower pole left renal calculus No hydronephrosis or ureteral calculi Colonic diverticulosis, no diverticulitis Mild urinary bladder wall thickening, consider cystitis
== END | disposition home or self-care (01) ==
PROVIDERS: PCP Internal Medicine; Referring Provider Internal Medicine; Visit Provider Internal Medicine
DX: N20.0 Calculus of kidney (principal); K57.30 Diverticulosis of large intestine without perforation or abscess without bleeding; N32.89 Other specified disorders of bladder
CPT/HCPCS: 74176

== ENCOUNTER → 2025-04-14 | Outpatient (CLI) | payer MEDICARE, BC, SELFPAY ==
[2025-04-14 07:59] LABS: Collection Type, Urine Clean Catch; Squamous Epithelial Cell,Urine 0 /hpf (0-5)
[2025-04-14 08:53] LABS: Creatinine,Random Urine 86 mg/dL (30-125)
[2025-04-14 08:59] LABS: Alanine Aminotransferase 22 U/L (10-49); Albumin, Serum 3.5 gm/dL (3.4-4.8); Albumin/Globulin Ratio 1.3 (1.2-2.2); Alkaline Phosphatase 131 U/L (46-116); Anion Gap 5 (7-16); Aspartate Amino Transferase 35 U/L (0-34); BUN/Creatinine Ratio 18 Ratio (12-20); Bilirubin,Total 0.6 mg/dL (0.3-1.2); Blood Urea Nitrogen 27 mg/dL (9-23); Calcium 8.6 mg/dL (8.3-10.6); Calcium (Corrected) 9.0 mg/dL (8.5-10.1); Carbon Dioxide 28.1 mMol/L (20.0-31.0); Cardiac Risk Estimate 1.9 RATIO (4.0-6.7); Chloride 108 mMol/L (98-107); Cholesterol 79 mg/dL (132-200); Creatinine (Component) 1.5 mg/dL (0.6-1.3); Globulin 2.8 gm/dL (2.3-3.5); Glucose 103 mg/dL (74-106); HDL Cholesterol 41 mg/dL (40-60); LDL Cholesterol,Calculated 26 mg/dL (0-130); Osmolality,Calculated 286 (275-295); Potassium 4.0 mMol/L (3.4-5.1); Sodium 141 mMol/L (136-145); Total Protein 6.3 gm/dL (5.7-8.2); Triglycerides 61 mg/dL (30-150); eGFR 46 See Note
[2025-04-14 09:03] LABS: Bilirubin,Urine Negative (Negative); Blood,Urine Negative (Negative); Clarity,Urine Clear (Clear/Hazy); Color,Urine Yellow (Lt Yel-Yel); Glucose, Urine Negative (Negative); Hyaline Casts,Urine < 1 /hpf (0-1); Ketones,Urine Negative (Negative); Leukocyte Esterase,Urine Positive (Negative); Nitrite,Urine Negative (Negative); PH,Urine 6.5 (5.0-7.0); Protein,Urine Negative (Neg - Trace); RBC,Urine 5 /hpf (0-3); Specific Gravity,Urine 1.019 (1.001-1.035); Urobilinogen,Urine 2.0 mg/dL (0.0-1.0); WBC,Urine 13 /hpf (0-5)
[2025-04-14 09:36] LABS: Culture Indicated,Urine Yes
== END | disposition home or self-care (01) ==
LOC: COPL 07:32
PROVIDERS: PCP Internal Medicine; Referring Provider Urology; Visit Provider Internal Medicine Cardiovascular Disease
DX: N39.0 Urinary tract infection, site not specified (principal); I12.9 Hypertensive chronic kidney disease with stage 1 through stage 4 chronic kidney disease, or unspecified chronic kidney disease; N18.30 Chronic kidney disease, stage 3 unspecified; E78.5 Hyperlipidemia, unspecified
CPT/HCPCS: 36415; 80053; 80061; 81001; 82570; 87077; 87086; 87186

== ENCOUNTER → 2025-04-26 | Outpatient (CLI) | payer MEDICARE, BC, SELFPAY ==
--- NOTE | 2025-04-26 12:50 | XR_ITS ---
Examination: MRI brain without intravenous contrast. Date and time of exam: April 26, 2025 1345 hours INDICATIONS: Dizziness ataxia tremors one month Technique: Multiple axial and sagittal images of the brain obtained. Siemens high-resolution 1.5 Corrina short bore scanners utilized. Sagittal sections, T1-weighted, TR 500, TE 14, are performed. Axial sections proton-density and T2-weighted have been obtained. Inversion recovery axial images, TR 9, 260, TE 111, TI 2500. Diffusion weighted images, axial sections, TR 4800, TE 128, B value 1000 Axial sections, ADC map, TR 4800, TE 128 Findings: Enlargement of the sella turcica is not present. The optic chiasm and infundibular are not remarkable. Prepontine and interpeduncular cisterns are not enlarged. There is no localized enlargement of the medulla or erika. Fourth ventricle and cerebellar tonsils appear normal in position. No subacute area of hemorrhage density is seen. Mass in the cerebellopontine angle region is not evident. Globes symmetrical. Orbital musculature including medial lateral rectus muscles do not exhibit abnormality. Diffusion-weighted images demonstrate no focus of restricted diffusion. Increased white matter signal prominent Bilateral mastoiditis Mass effect upon the ventricular system is not identified. Impression: Negative for acute hemorrhage mass effect or midline shift No acute infarct Moderate chronic microvascular white matter change Bilateral mastoiditis
== END | disposition home or self-care (01) ==
LOC: SDIM 12:27
PROVIDERS: PCP Internal Medicine; Referring Provider Internal Medicine; Visit Provider Psychiatry & Neurology Neurology
DX: R90.82 White matter disease, unspecified (principal); H70.93 Unspecified mastoiditis, bilateral
CPT/HCPCS: 70551

== ENCOUNTER → 2025-05-03 | Outpatient (CLI) | payer MEDICARE, BC, SELFPAY ==
[2025-05-03 14:35] LABS: Collection Type, Urine Clean Catch; RBC,Urine 0 /hpf (0-3)
[2025-05-03 17:18] LABS: Bilirubin,Urine Negative (Negative); Blood,Urine Negative (Negative); Clarity,Urine Clear (Clear/Hazy); Color,Urine Yellow (Lt Yel-Yel); Culture Indicated,Urine Not Indicated; Glucose, Urine Negative (Negative); Ketones,Urine Negative (Negative); Leukocyte Esterase,Urine Trace (Negative); Nitrite,Urine Negative (Negative); PH,Urine 6.0 (5.0-7.0); Protein,Urine Trace (Neg - Trace); Specific Gravity,Urine 1.020 (1.001-1.035); Urobilinogen,Urine 1.0 mg/dL (0.0-1.0)
[2025-05-03 17:30] LABS: Bacteria,Urine Rare; Squamous Epithelial Cell,Urine 2 /hpf (0-5); WBC,Urine 2 /hpf (0-5)
== END | disposition home or self-care (01) ==
LOC: SLDO 14:31
PROVIDERS: PCP Internal Medicine; Referring Provider Internal Medicine; Visit Provider Internal Medicine
DX: Z00.00 Encounter for general adult medical examination without abnormal findings (principal)
CPT/HCPCS: 81001

== ENCOUNTER → 2025-05-20 | Outpatient (CLI) | payer MEDICARE, BC, SELFPAY ==
[2025-05-20 08:13] LABS: Collection Type, Urine Clean Catch; Squamous Epithelial Cell,Urine 0 /hpf (0-5)
[2025-05-20 08:41] LABS: Basophils # (Auto) 0.0 Thou/mm3 (0.0-0.2); Basophils % (Auto) 0 % (0-2.5); Eosinophils # (Auto) 0.2 Thou/mm3 (0.0-0.5); Eosinophils % (Auto) 3 % (0-10); Hematocrit 35.6 % (41.0-53.0); Hemoglobin 11.6 g/dL (13.5-16.0); Immature Granulocytes Auto 0.04 Thou/mm3 (0.00-0.00); Lymphocytes # (Auto) 1.1 Thou/mm3 (1.0-4.8); Lymphocytes % (Auto) 15 % (10-50); Mean Corpuscular HGB Conc 32.6 g/dl (31.0-37.0); Mean Corpuscular Hemoglobin 31.0 pg (25.0-35.0); Mean Corpuscular Volume 95 fL (80-100); Monocytes # (Auto) 0.9 Thou/mm3 (0.0-0.8); Monocytes % (Auto) 13 % (0-12); Neutrophils # (Auto) 4.9 Thou/mm3 (1.8-7.7); Neutrophils % (Auto) 68 % (37-80); Nucleated Red Blood Cell # 0.00 Thou/mm3 (0.00-0.00); Nucleated Red Blood Cell % 0 /100 WBC (0); Platelet Count 284 Thou/mm3 (140-440); RDW Standard Deviation 60.8 fL (35.1-43.9); Red Blood Count 3.74 Miln/mm3 (4.50-5.90); White Blood Count 7.2 Thou/mm3 (3.8-10.6)
[2025-05-20 08:44] LABS: Bilirubin,Urine Negative (Negative); Blood,Urine Negative (Negative); Clarity,Urine Clear (Clear/Hazy); Color,Urine Lt-Yellow (Lt Yel-Yel); Glucose, Urine Negative (Negative); Ketones,Urine Negative (Negative); Leukocyte Esterase,Urine Negative (Negative); Nitrite,Urine Negative (Negative); PH,Urine 6.0 (5.0-7.0); Protein,Urine Negative (Neg - Trace); RBC,Urine 3 /hpf (0-3); Specific Gravity,Urine 1.022 (1.001-1.035); Urobilinogen,Urine Negative mg/dL (0.0-1.0); WBC,Urine 1 /hpf (0-5)
[2025-05-20 08:55] LABS: Albumin, Serum 3.5 gm/dL (3.4-4.8); Anion Gap 8 (7-16); BUN/Creatinine Ratio 18 Ratio (12-20); Blood Urea Nitrogen 23 mg/dL (9-23); Calcium 9.0 mg/dL (8.3-10.6); Calcium (Corrected) 9.4 mg/dL (8.5-10.1); Carbon Dioxide 26.8 mMol/L (20.0-31.0); Chloride 110 mMol/L (98-107); Creatinine (Component) 1.3 mg/dL (0.6-1.3); Glucose 100 mg/dL (74-106); Osmolality,Calculated 292 (275-295); Phosphorous 2.8 mg/dL (2.4-5.1); Potassium 4.3 mMol/L (3.4-5.1); Sodium 145 mMol/L (136-145); eGFR 55 See Note
[2025-05-20 08:57] LABS: Parathyroid Hormone Intact 67.3 pg/ml (18.5-88.0)
== END | disposition home or self-care (01) ==
LOC: COPL 07:43
PROVIDERS: PCP Internal Medicine; Referring Provider Internal Medicine; Visit Provider Internal Medicine
DX: I12.9 Hypertensive chronic kidney disease with stage 1 through stage 4 chronic kidney disease, or unspecified chronic kidney disease (principal); N18.30 Chronic kidney disease, stage 3 unspecified
CPT/HCPCS: 36415; 80069; 81001; 83970; 85025

== ENCOUNTER → 2025-06-08 | Outpatient (CLI) | payer MEDICARE, BC, SELFPAY ==
--- NOTE | 2025-06-08 12:20 | XR_ITS ---
Examination: Bone densitometry Date and time of exam:June 08, 2025, 1229 hours INDICATIONS: Injury to the lower back 1992 with lumbar fracture, calcium 5 years Technique: Lumbar spine and hip total bone mineralization values of an calculated. Peak reference and age match control results have been displayed. Findings: Lumbar spine total bone mineralization is1.378 gm/cm2. This is 2.6 standard deviations above peak reference. This is 3.9 standard deviations above age-matched controls. Hip total bone mineralization is 0.989 gm/cm2 This is 0.3 standard deviations below peak reference. This is 0.9 standard deviations above age-matched controls Impression: There is normal mineralization based on lumbar spine measurements. There is osteopenia based on hip measurements Lumbar mineralization is increase 16.2% compared with March 01, 2008 Hip mineralization is increased 8.7% compared with March 01, 2008
== END | disposition home or self-care (01) ==
LOC: CDIM 11:58
PROVIDERS: PCP Internal Medicine; Referring Provider Internal Medicine; Visit Provider Internal Medicine
DX: M85.89 Other specified disorders of bone density and structure, multiple sites (principal)
CPT/HCPCS: 77080

== ENCOUNTER 2025-06-14 09:27 | Outpatient (AMB) | payer MEDICARE, BC, SELFPAY ==
--- NOTE | 2025-06-14 09:46 | ORTHONT_ITS ---
Vital signs 06/14/25 09:48 Height 1.7 m Height Method Stated Weight 71.271 kg Weight Measurement Method Standing Scale BMI 24.6 BP 112/54 L Blood Pressure Source Automatic Cuff Blood Pressure Location Left Upper Arm Position Sitting Respiration 18 Pulse 49 L Pulse Source Monitor Temp 97.7 F Temp Source Temporal Artery Scan Pulse Oximetry (%) 92 L Oxygen Delivery Method Room Air Med/Allergies Allergies & Medications Allergies Penicillins Allergy (Unknown, Verified 06/14/25 09:49) RASH Sulfa (Sulfonamide Antibiotics) Allergy (Unknown, Verified 06/14/25 09:49) RASH Medication Reconciliation benazepril 20 mg tablet 20 mg PO QDAY ##0 12/09/13 [History Confirmed 06/14/25] paroxetine HCl 30 mg tablet 40 mg PO QDAY ##0 12/09/13 [History Confirmed 06/14/25] calcitriol 0.5 mcg capsule 0.5 mcg PO HS ##90 08/20/17 [History Confirmed 06/14/25] pantoprazole 40 mg tablet,delayed release 40 mg PO QDAY ##90 08/20/17 [History Confirmed 06/14/25] hydralazine 50 mg tablet 50 mg PO BID 12/06/21 [History Confirmed 06/14/25] rosuvastatin 20 mg tablet 10 mg PO HS 12/06/21 [History Confirmed 06/14/25] aspirin 81 mg chewable tablet 81 mg PO DAILY #1 tab 12/08/21 [Rx Confirmed 06/14/25] hydrochlorothiazide 12.5 mg capsule 12.5 mg PO QDAY 12/08/21 [History Confirmed 06/14/25] amiodarone 200 mg tablet 200 mg PO DAILY 06/08/24 [History Confirmed 06/14/25] allopurinol 100 mg tablet 100 mg PO 1XD 06/16/24 [History Confirmed 06/14/25] apixaban 5 mg tablet (Eliquis) 5 mg PO BID 06/16/24 [History Confirmed 06/14/25] metoprolol succinate 50 mg tablet,extended release 24 hr 50 mg PO QDAY 06/16/24 [History Confirmed 06/14/25] levofloxacin 250 mg tablet 250 mg PO QDAY #10 tabs 06/17/24 [Rx Confirmed 06/14/25] tamsulosin 0.4 mg capsule 0.4 mg PO QDAY days #30 caps 06/17/24 [Rx Confirmed 06/14/25] dutasteride 0.5 mg capsule (Avodart) 0.5 mg PO QDAY 06/29/24 [History Confirmed 06/14/25] Exam Exam Patient is in no acute distress and is cooperative with the examination today. Breathing is nonlabored. Patient has a normal mood and affect. Bilateral extremities were evaluated and demonstrates sensation intact to light touch. Palpable pedal pulses are present. No significant edema is present. Bilateral hips were examined. The patient has no pain with log roll of the hips. Internal rotation to 30 degrees and external rotation to 30 degrees is painless. Negative FADIR. Right total knee replacement is in good alignment position. Range of motion 0 to 100 degrees Assessment and Plan Problem List (1) History of total right knee replacement: Status: Acute Plan: Patient is a pleasant 84-year-old male who is status post right total knee replacement. We recommend continued physical therapy. He is doing well. Recommend knee cortisone injection as patient would like to proceed with conservative treatment at this time. The risks and benefits of the procedure were reviewed with the patient and patient gave verbal consent to continue with the procedure. Procedure: performed by Dr. Hillman Using sterile technique the left knee was thoroughly prepped with alcohol, and approximately 1 cc of Depo-Medrol 80mg/mL and 4 cc of 0.2% ropivacaine was injected without resistance into the medial tibial femoral joint space. The patient tolerated the procedure. Advanced Care Planning Discussion Advance care planning discussed with:: patient Office Procedures GNS Level of Care Nursing/Assessment Patient Status: Established Patient Nursing Assessment/Reassesment: Medication Reconciliation, Update PMH in EMR and Vital Signs Coordination of Care: Complex Care and Chronic Disease 1-5, Education Complex Pt/Fam, Consent,records obtained, informed consent, Results/Orders obtained and Staff clarify orders Established Patient Charge Established Patient Point Assignment: 95 Established Patient Point Charge: EP Level 3 (80-115) Surgical Proc/IM SQ injection Minor Surgical Procedure: Yes (LEFT KNEE INJECTION) Medication Given Medication Given Medication Given: Yes Documented Dose Given: 1 Route: Infiitration Medication Given Medication Given Medication Given: Yes Documented Dose Given: 4 Route: Infiitration Office Meds methylprednisolone acetate 80 mg/mL suspension for injection Performing Provider: Eyad Hillman MD Performing Location: [facility] Administered by: Eyad Hillman MD on 06/14/25 09:58 Dose Route Admin Location Dispensed Lot Number Expiration Date Pack age [facility] [employer] 80 mg intra-articular KNEE 1 mL [id number] 03/14/27 [address]-3 [id number] [employer] ropivacaine (PF) 2 mg/mL (0.2 %) injection solution Performing Provider: Eyad Hillman MD Performing Location: [facility] Administered by: Eyad Hillman MD on 06/14/25 09:58 Dose Route Admin Location Dispensed Lot Number Expiration Date Pack age [facility] [employer] 20 mL Infiltration KNEE 20 mL [id number] 10/15/27 55269-540-50 [id number] [facility] Intake Visit Data Collection New Patient or Established: Established Patient (seen at [facility] within 3 years) Reason for Visit:: KNEE PAIN Seen by Clinical Staff ONLY (RN/MA): No Verbal consent obtained for Telemed visit?: No Automobile Mechanic Required: No PCP or OBGYN visit in last 3 months: Yes Hx Now: No Do You Feel Safe at Home: Yes Authorities Contacted: N/A Questionairres Past Medical History Past Medical History Have you ever been diagnosed with any of the following: Neurological Problems Seizures: No Cardiology Problems Myocardial Infarction: Yes Atrial Fibrillation: Yes Coronary Artery Disease: Yes Hypercholesterolemia: Yes Congestive Heart Failure: No Edema: Yes Hypertension: Yes Respiratory Problems Chronic Obstructive Pulmonary Disease (COPD): No Smoking: No Smoking Exposure: No Stomache/Intestinal Problems Hepatitis: No Hemorrhoids: No Genital/Urinary Problems Renal Disease: Yes Musculoskeletal Problems Arthritis: Yes Gout: Yes Fractures: Yes Head,Eye,Nose,Throat Problems Cataracts: Yes Endocrine Problems Diabetes Mellitus Type 1: No Diabetes Mellitus Type 2: No Psychologic Problems Depression: Yes Anxiety: Yes Other Problems Hospitalization: Yes Shingles: No Falls: No Blood Transfusions: No Blood Transfusion Reaction: No Anesthesia Reactions: No Chemotherapy: No Radiation Therapy: No Chicken Pox: Yes Measles: Yes Cancer: No Surgical History Coronary Artery Bypass Graft: Yes Subjective Visit Visit for: follow up visit and knee Immunization / Flu Flu Vaccine in the Last 12 Months: No Flu Vaccine Exclusion Criteria: No Exclusion Criteria History of Present Illness Chief complaint: right knee arthritis Heladio is a pleasant 85 yo male s/p R TKA. He isdoing well. He has minimal pain, He reports his left knee osteoarthritis bothers him more. he would like a left knee injection today Personal History Occupation: RETIRED Red flag PMH: BMI Pain Pain level (0-10): 4 Pain duration: WITH MOVEMENT Pain location: inside (medial), outside (lateral) and anterior Pain quality: sharp, dull and aching Pain timing: increases with activity Associated signs & symptoms: none Ambulatory data Ambulatory device: walker and none Walking distance (blocks): 1 Treatments Improvement with previous injections: No Improvement with PT: No Improvement with NSAIDS: no Review of Systems Review of Systems: All systems negative unless otherwise noted in HPI.
[2025-06-14 09:48] VITALS: BP 112/54; PULSE 49; RESP 18; TEMP 36.5; O2SAT 92; BMI 24.6
== END 2025-06-14 10:02 | disposition home or self-care (01) ==
LOC: HODSRG 09:27
PROVIDERS: PCP Internal Medicine; Referring Provider Internal Medicine; Supervising Provider Orthopaedic Surgery Adult Reconstructive Orthopaedic Surgery; Visit Provider Orthopaedic Surgery Adult Reconstructive Orthopaedic Surgery
DX: M17.0 Bilateral primary osteoarthritis of knee (principal); Z96.651 Presence of right artificial knee joint; I10 Essential (primary) hypertension; E78.00 Pure hypercholesterolemia, unspecified; I48.91 Unspecified atrial fibrillation; I25.2 Old myocardial infarction; Z95.1 Presence of aortocoronary bypass graft
CPT/HCPCS: 20610; 99213; J1010; J2795; G0463

== ENCOUNTER 2025-06-15 08:19 | Inpatient (IN) | payer MEDICARE, BC, SELFPAY ==
[2025-06-15] VITALS (13 sets, daily range): BP systolic 107–178; BP diastolic 56–97; PULSE 49–64; RESP 16–92; TEMP 36.2–36.6; O2SAT 92–98; BMI 26.6
--- NOTE | 2025-06-15 09:05 | EKG_ITS ---
[facility] Test Date: 2025-06-15 Pat Name: ALYSON GUILLAUME Department: Room: - Gender: Male Ore [employer]her: : 1940 Requested By: Maxine Fields Order Number: [id number] Reading MD: Maxine Fields Measurements Intervals [place] Rate: 58 P: [place]: QRS: -76 QRSD: 182 T: 96 QT: 524 QTc: 516 Interpretive Statements UNCERTAIN REGULAR RHYTHM RIGHT BUNDLE BRANCH BLOCK [120+ ms QRS DURATION, UPRIGHT V1, 40+ ms S IN I/aVL/V4/V5/V6] LEFT ANTERIOR FASCICULAR BLOCK [QRS AXIS <= -45, QR IN I, RS IN II] Compared to ECG 06/14/2024 14:36:39 Sinus rhythm no longer present T-wave abnormality no longer present Possible ischemia no longer present /store/S0/[id number].pdf
--- NOTE | 2025-06-15 09:19 | XR_ITS ---
Examination: AP chest single view Technique one AP portable upright chest single view Date and time: June 15, 2025 0952 hours, comparison 06/14/2014 INDICATIONS: Shortness breath chest pain today. FINDINGS: Moderate CHF Moderate enlargement cardiac contour. CABG. Prominent vascular congestion including central vascular engorgement and extensive perihilar edema IMPRESSION: Moderate CHF Consider superimposed bilateral pneumonia, clinical correlation advised
[2025-06-15 09:51] LABS: Basophils # (Auto) 0.0 Thou/mm3 (0.0-0.2); Basophils % (Auto) 0 % (0-2.5); Eosinophils # (Auto) 0.1 Thou/mm3 (0.0-0.5); Eosinophils % (Auto) 2 % (0-10); Hematocrit 35.9 % (41.0-53.0); Hemoglobin 11.7 g/dL (13.5-16.0); Immature Granulocytes Auto 0.05 Thou/mm3 (0.00-0.00); Lymphocytes # (Auto) 0.6 Thou/mm3 (1.0-4.8); Lymphocytes % (Auto) 7 % (10-50); Mean Corpuscular HGB Conc 32.6 g/dl (31.0-37.0); Mean Corpuscular Hemoglobin 30.8 pg (25.0-35.0); Mean Corpuscular Volume 95 fL (80-100); Monocytes # (Auto) 0.9 Thou/mm3 (0.0-0.8); Monocytes % (Auto) 10 % (0-12); Neutrophils # (Auto) 7.3 Thou/mm3 (1.8-7.7); Neutrophils % (Auto) 81 % (37-80); Nucleated Red Blood Cell # 0.00 Thou/mm3 (0.00-0.00); Nucleated Red Blood Cell % 0 /100 WBC (0); Platelet Count 238 Thou/mm3 (140-440); RDW Standard Deviation 56.5 fL (35.1-43.9); Red Blood Count 3.80 Miln/mm3 (4.50-5.90); White Blood Count 9.0 Thou/mm3 (3.8-10.6)
[2025-06-15 10:14] LABS: Alanine Aminotransferase 19 U/L (10-49); Albumin, Serum 3.6 gm/dL (3.4-4.8); Albumin/Globulin Ratio 1.5 (1.2-2.2); Alkaline Phosphatase 123 U/L (46-116); Anion Gap 7 (7-16); Aspartate Amino Transferase 23 U/L (0-34); BUN/Creatinine Ratio 15 Ratio (12-20); Bilirubin,Total 0.7 mg/dL (0.3-1.2); Blood Urea Nitrogen 20 mg/dL (9-23); Calcium 9.2 mg/dL (8.3-10.6); Calcium (Corrected) 9.5 mg/dL (8.5-10.1); Carbon Dioxide 25.3 mMol/L (20.0-31.0); Chloride 111 mMol/L (98-107); Creatinine (Component) 1.3 mg/dL (0.6-1.3); Estimated Creatinine Clearance 38.2 mL/min (>60); Globulin 2.4 gm/dL (2.3-3.5); Glucose 114 mg/dL (74-106); Magnesium 2.0 mg/dL (1.6-2.6); Osmolality,Calculated 288 (275-295); Potassium 4.3 mMol/L (3.4-5.1); Sodium 143 mMol/L (136-145); Total Protein 6.0 gm/dL (5.7-8.2); Troponin I < 0.020 ng/mL (0.0-0.045); eGFR 54 See Note
[2025-06-15 10:19] LABS: INR 1.2 (0.9-1.3); Partial Thromboplastin Time 31.5 Seconds (22.0-36.0); Prothrombin Time 12.3 Seconds (9.0-12.2)
[2025-06-15 10:37] LABS: B-Type Natriuretic Peptide 1740 pg/mL (0-100)
--- NOTE | 2025-06-15 11:38 | PD.EDCHEST ---
ED Chest Pain RME/HPI General Chief Complaint: Chest Pain Stated Complaint: SOB Arrival date/time: 06/15/25 08:19 RME / HPI RME / HPI narrative: 85 year old male with a history of multiple MIs, CAD status post CABG and multiple stents, hypertension, hyperlipidemia, and CKD presents to the ED with complaints of shortness of breath and chest pain that began at 05:30 AM today. The chest pain is described as aching, with intermittent sharp pains, rated 7/10 in severity. Located to the mid-sternum and radiates to the right side of the chest. The pain is aggravated by deep breathing. The shortness of breath is described as being unable to take a deep breath. He denies any increase in pain with movement. Patient states he was in his usual state of health yesterday. Denies fever, chills, night sweats, sore throat, cough, nausea, vomiting, diarrhea, or urinary symptoms. Related Data Home Medications ?Medication ?Instructions ?Recorded ?Confirmed benazepril 20 mg tablet 20 mg PO QDAY ##0 12/09/13 06/14/25 paroxetine HCl 30 mg tablet 40 mg PO QDAY ##0 12/09/13 06/14/25 calcitriol 0.5 mcg capsule 0.5 mcg PO HS ##90 08/20/17 06/14/25 pantoprazole 40 mg tablet,delayed 40 mg PO QDAY ##90 08/20/17 06/14/25 release hydralazine 50 mg tablet 50 mg PO BID 12/06/21 06/14/25 rosuvastatin 20 mg tablet 10 mg PO HS 12/06/21 06/14/25 hydrochlorothiazide 12.5 mg capsule 12.5 mg PO QDAY 12/08/21 06/14/25 amiodarone 200 mg tablet 200 mg PO DAILY 06/08/24 06/14/25 allopurinol 100 mg tablet 100 mg PO 1XD 06/16/24 06/14/25 apixaban 5 mg tablet (Eliquis) 5 mg PO BID 06/16/24 06/14/25 metoprolol succinate 50 mg 50 mg PO QDAY 06/16/24 06/14/25 tablet,extended release 24 hr dutasteride 0.5 mg capsule 0.5 mg PO QDAY 06/29/24 06/14/25 (Avodart) Previous Rx's ?Medication ?Instructions ?Recorded aspirin 81 mg chewable tablet 81 mg PO DAILY #1 tab 12/08/21 levofloxacin 250 mg tablet 250 mg PO QDAY #10 tabs 06/17/24 tamsulosin 0.4 mg capsule 0.4 mg PO QDAY 30 days #30 caps 06/17/24 Allergies Allergy/AdvReac Type Severity Reaction Status Date / Time Penicillins Allergy Unknown RASH Verified 06/15/25 09:02 Sulfa (Sulfonamide Allergy Unknown RASH Verified 06/15/25 09:02 Antibiotics) Review of Systems Review of Systems Systems Reviewed: All systems reviewed, normal except as documented Past Medical History Past Medical History CARDIAC: Positive Cardiac Disorders, Myocardial Infarction, Atrial Fibrillation, Coronary Artery Disease, Hypercholesterolemia, Edema and Hypertension GENITOURINARY: Positive Genitourinary Disorders and Renal Disease MUSCULOSKELETAL: Positive Musculoskeletal Disorders, Arthritis, Gout and Fractures ENT: Positive Cataracts PSYCHO/SOCIAL: Positive Depression and Anxiety OTHER HISTORY: Positive Hospitalization, Chicken Pox and Measles Surgical History SURGICAL: Positive Cardiac Surgery, Coronary Artery Bypass Graft, Coronary Stent (X13), Angiogram, Eye Surgery, Tonsillectomy and Arthroscopy Social History SMOKING STATUS: Never smoker SUBSTANCE USE: does not use ED Exam Narrative Physical exam: Constitutional: Awake, alert, nontoxic, no acute distress HEENT: NC, AT, EOMI Neck: Supple CV: RRR, no m/r/g Chest: Tenderness to lower mid sternal region, scar from previous bypass surgery, Lungs: Rales bilateral lower lung serrano, no wheezing, no rhonchi, no respiratory distress. Abd: Soft, tenderness to epigastrium, no HSM noted to palpation Extremities: No deformities, 1-2+ edema to LLE, 1+ RLE. Neuro: AAOx3, CN 2-12 GIBL, no acute neuro deficit noted. Skin: Warm, dry, intact Course Course Course Narrative: 1136h: Patient coming in for chest pain and shortness of breath. Initial Trope was negative. Does have pulmonary edema on chest x-ray with crackles bilaterally. Sats are low to mid 90s on room air. Believe would benefit from admission for diuresis as well as cardiology input. Ordered dose of Lasix IV in addition to nitroglycerin given persistent chest pain. No significant EKG abnormalities other than t wave inversion V1-2. I spoke with patients PCP Dr. Gandhi who agrees to accept the patient for admission and requests cards input. 1142h: I spoke with creative services director Dr. Marquis. He agrees to consult. Quality Measures none Orders Category Date Time Status Bedside COVID-19 Antigen Test NOW Care 06/15/25 12:05 Active Database Manager STAT Care 06/15/25 09:19 Active Continuous Pulse Oximetry ONCE Care 06/15/25 09:19 Completed EKG (ED ONLY) *Do not use* NOW Care 06/15/25 09:05 Completed Insert IV STAT Care 06/15/25 09:19 Active CA echo doppler complete Stat Exams 06/15/25 13:24 Ordered EKG (ED Only) Stat Exams 06/15/25 09:05 Draft XR chest 1V portable Stat Exams 06/15/25 09:19 Completed B-Type Natriuretic Peptide Stat Lab 06/15/25 09:35 Completed CBC Stat Lab 06/15/25 09:35 Completed Comprehensive Metabolic Panel Stat Lab 06/15/25 09:35 Completed Magnesium Stat Lab 06/15/25 09:35 Completed Partial Thromboplastin Time AM DRAW Lab 06/17/25 05:00 Ordered Partial Thromboplastin Time Stat Lab 06/15/25 09:35 Completed Prothrombin Time with INR AM DRAW Lab 06/17/25 05:00 Ordered Prothrombin Time with INR Stat Lab 06/15/25 09:35 Completed Troponin I Stat Lab 06/15/25 09:35 Completed Troponin I Stat Lab 06/15/25 11:45 Completed Amiodarone [Cordarone] Med 06/15/25 13:15 Active 200 mg PO QDAY Aspirin Chew Med 06/15/25 09:19 Discontinued 324 mg PO X1 ONE Atorvastatin Calcium [Lipitor] Med 06/16/25 09:00 Active 80 mg PO QDAY Benazepril Med 06/15/25 13:30 Ordered 20 mg OP BID Bumetanide Inj [Bumex Inj] Med 06/15/25 21:00 Active 2 mg IVP BID Furosemide Inj [Lasix Inj] Med 06/15/25 11:34 Discontinued 80 mg IVP X1 ONE Heparin Inj Med 06/15/25 13:25 Discontinued 4,000 unit IV X1 ONE Heparin/D5w 25K 250 ML Ivpb [Heparin in D5w Ivpb] Med 06/15/25 13:30 Active 25,000 unit in 250 ml IV 12 units/kg/hr Metoprolol Succinate Xl [Toprol Xl] Med 06/16/25 09:00 Active 25 mg PO QDAY Nitroglycerin Oint 2% [Nitro-paste Oint 2%] Med 06/15/25 13:22 Discontinued 1 inch TOP Q6HR ONE Nitroglycerin [Nitrostat 1/150] Med 06/15/25 11:45 Active 0.4 mg SL Q5MIN Ondansetron Inj [Zofran Inj] Med 06/15/25 09:19 Active 4 mg IVP Q1HR PRN PARoxetine HCL [Paxil] Med 06/16/25 09:00 Active 30 mg PO QDAY Pantoprazole [Protonix] Med 06/15/25 13:20 Active 40 mg PO QDAY Tamsulosin HCl [Flomax] Med 06/15/25 13:14 Discontinued 0.4 mg PO X1 ONE allopurinoL [Zyloprim] Med 06/16/25 09:00 Active 100 mg PO QDAY hydrALAZINE HCL [Apresoline] Med 06/15/25 14:00 Active 50 mg PO TID Vital Signs Vital signs: Vital Signs Temperature 97.8 F 06/15/25 08:51 Pulse Rate 59 L 06/15/25 08:51 Respiratory Rate 20 06/15/25 08:51 Blood Pressure 178/96 H 06/15/25 08:51 Pulse Oximetry (%) 95 06/15/25 08:51 Oxygen Delivery Method Room Air 06/15/25 08:51 Pulse ox is 95% on room air which is adequate. Chest Pain MDM Narrative MDM Narrative:: Alicja Alvarenga am scribing for and in the presence of Dr. De Santiago. Patient data External records reviewed:: [facility] previous records Clinical information provided by:: patient Social determinants that could affect healthcare access:: none Patient has the following chronic illnesses:: multiple MIs, CAD status post CABG and multiple stents, hypertension, hyperlipidemia, and CKD How is presenting disease/condition affected by chronic disease/condition?: exacerbated by Evaluation data The following diagnostics were reviewed and interpreted by me:: lab results, radiology exam(s) and EKG tracing(s) (EKG @ 09:08 AM. Unclear rhythm, rate 58, T-wave inversion V1 V2, RBBB. ) Lab and/or radiology exams considered but not ordered:: None Interpretation Summary: Ordering Physician: Maxine De Santiago MD Date of Service: 06/15/25 Procedure(s): XR chest 1V portable Accession Number(s): [id number] cc: Raffy Albert MD; Maxine De Santiago MD; Kevin Gandhi MD~ Examination: AP chest single view Technique one AP portable upright chest single view Date and time: June 15, 2025 0952 hours, comparison 06/14/2014 INDICATIONS: Shortness breath chest pain today. FINDINGS: Moderate CHF Moderate enlargement cardiac contour. CABG. Prominent vascular congestion including central vascular engorgement and extensive perihilar edema IMPRESSION: Moderate CHF Consider superimposed bilateral pneumonia, clinical correlation advised Dictated By: Raffy Albert MD Signed By: <Electronically signed by Raffy Albert MD in OV> 06/15/25 1011 Medications / Prescriptions Medications or Prescriptions considered but not ordered:: None Medication administrations:: Medication Administration History Allopurinol (Allopurinol 100 Mg Tablet) 100 mg PO QDAY [facility] Stop: 07/16/25 08:59 Amiodarone HCl (Amiodarone Hcl 200 Mg Tablet) 200 mg PO QDAY [facility] Stop: 07/15/25 13:14 Atorvastatin Calcium (Atorvastatin Calcium 20 Mg Tablet) 80 mg PO QDAY [facility] Stop: 07/16/25 08:59 Bumetanide (Bumetanide Inj 0.25 Mg/Ml Vial 4 Ml) 2 mg IVP BID [facility] Stop: 07/15/25 20:59 Hydralazine HCl (Hydralazine Hcl 25 Mg Tablet) 50 mg PO TID [facility] Stop: 07/15/25 13:59 Heparin Sodium/Dextrose (Heparin In D5w Ivpb) 25,000 unit in 250 mls @ 9.003 mls/hr IV .Q24H [facility]; Protocol Stop: 06/29/25 13:29 Metoprolol Succinate (Metoprolol Succinate Xl 25 Mg Tabcr) 25 mg PO QDAY [facility] Stop: 07/16/25 08:59 Nitroglycerin (Nitroglycerin 0.4 Mg Subl Btl #25) 0.4 mg SL Q5MIN INOCENTE Stop: 06/17/25 11:46 Non-Formulary Medication (Benazepril) 20 mg OP BID INOCENTE Stop: 07/15/25 13:29 Ondansetron HCl (Ondansetron Inj 2 Mg/Ml Inj 2 Ml) 4 mg IVP Q1HR PRN PRN Reason: PERSISTENT NAUSEA OR VOMITING Pantoprazole Sodium (Pantoprazole 40 Mg Tablet) 40 mg PO QDAY [facility] Stop: 07/15/25 13:19 Paroxetine HCl (Paroxetine Hcl 10 Mg Tablet) 30 mg PO QDAY INOCENTE Stop: 07/16/25 08:59 Discontinued Medications Aspirin (Aspirin 81 Mg Chew) 324 mg PO X1 ONE Stop: 06/15/25 09:20 Last Admin: 06/15/25 09:37 Dose: Not Given Documented By: GM Non-Admin Reason: Cancelled by Provider Comments: MADE AWARE PT REPORTED CHEWING BABY ASPIRIN X4 PILLS THIS MORNING. Furosemide (Furosemide Inj 10 Mg/Ml 4ml Vial) 80 mg IVP X1 ONE Stop: 06/15/25 11:35 Last Admin: 06/15/25 11:57 Dose: 80 mg Documented By: Heparin Sodium (Porcine) (Heparin Sod Inj 5000 Unit/Ml Vial) 4,000 unit IV X1 ONE; Protocol Stop: 06/15/25 13:26 Nitroglycerin (Nitroglycerin Oint 2% 1 Inch Packet) 1 inch TOP Q6HR ONE Stop: 06/15/25 13:23 Tamsulosin HCl (Tamsulosin Hcl 0.4 Mg Capsule) 0.4 mg PO X1 ONE Stop: 06/15/25 13:15 See above Consultations Consultation(s) initiated? (list below): Yes Consultation #1 (Physician, Specialty, Details): See course Diagnosis Most likely diagnosis given after review of the tests above:: Pulmonary edema Chest pain history of CAD Admission Indicated Admission indicated?: indicated Admission Request Was there a request for admission?: Yes Admission Attestation Admission request attestation: Discussed case with [] from Hospitalist service regarding admission. Discussed patients ED course, exam findings, labs, and radiology results. The Hospitalist [agrees,declines] to accept the patient for admission. Disposition Plan Disposition Plan: Admit Discharge Plan Plan Patient Disposition: Admit Acute Care w/in Hospital Prescriptions/Referrals Prescriptions/Med Rec: No Action dutasteride [Avodart] 0.5 mg capsule 0.5 mg PO QDAY ropivacaine (PF) 2 mg/mL (0.2 %) solution 20 ml Infiltration X1 Qty: 20 0RF methylprednisolone acetate 80 mg/mL suspension 80 mg intra-articular X1 Qty: 1 0RF paroxetine HCl 30 MG tablet 40 mg PO QDAY Qty: 0 benazepril 20 mg Tablet 20 mg PO QDAY Qty: 0 pantoprazole 40 mg Tablet,Delayed Release (Dr/Ec) 40 mg PO QDAY Qty: 90 calcitriol 0.5 MCG capsule 0.5 mcg PO HS Qty: 90 hydralazine 50 mg tablet 50 mg PO BID Patient Comments: TAKE 1 TABLET BY MOUTH EVERY DAY IN THE EVENING rosuvastatin 20 mg tablet 10 mg PO HS Patient Comments: TAKE 1 TABLET BY MOUTH EVERY DAY hydrochlorothiazide 12.5 mg Capsule 12.5 mg PO QDAY aspirin 81 mg Tablet,Chewable 81 mg PO DAILY Qty: 1 0RF amiodarone 200 mg tablet 200 mg PO DAILY allopurinol 100 mg tablet 100 mg PO 1XD Patient Comments: TAKE 1 TABLET BY MOUTH EVERY DAY metoprolol succinate 50 mg Tablet Extended Release 24 Hr 50 mg PO QDAY Eliquis 5 mg Tablet 5 mg PO BID tamsulosin 0.4 mg Capsule 0.4 mg PO QDAY 30 Days Qty: 30 2RF levofloxacin 250 mg tablet 250 mg PO QDAY Qty: 10 0RF Rx Instructions: Take 1 tablet daily for 10 days Referrals: Kevin Gandhi MD [Primary Care Provider, Nephrology] - In 1 week Problem List Clinical Impression: Pulmonary edema, Chest pain, Hx of coronary artery disease Patient/Caregiver Discharge Instructions Print Language: German Stand Alone Forms: Rhonda Award Info., Patient Portal Info Letter
[2025-06-15] MEDS: FUROSEMIDE INJ 10 MG/ML 4ML VIAL 80 MG IVP (11:57)
[2025-06-15 12:10] LABS: Troponin I < 0.020 ng/mL (0.0-0.045)
--- NOTE | 2025-06-15 13:24 | ECHO_ITS ---
Transthoracic Echo Report Ht (in): 66 Wt (lb): 165 Exam Location: [facility] Status: Emergency Valve Repairer: Brody Arevalo Indications: Procedure Performed: BP: 140 / 70 HR: 54 MEASUREMENTS (Male / Female) Normal Values 2D ECHO LV Diastolic Diameter PLAX 5.8 cm 4.2 - 5.9 / 3.9 - 5.3 cm LV Systolic Diameter PLAX 4.4 cm IVS Diastolic Thickness 1.0 cm 0.6 - 1.0 / 0.6 - 0.9 cm LVPW Diastolic Thickness 1.2 cm 0.6 - 1.0 / 0.6 - 0.9 cm LV Relative Wall Thickness 0.4 LVOT Diameter 1.9 cm LA Volume Index 45.5 cm?/m? 16 - 28 cm?/m? Ascending Aorta Diameter 3.8 cm M-MODE AV Cusp Separation MM 1.3 cm DOPPLER AV Peak Velocity 164.0 cm/s AV Peak Gradient 10.8 mmHg AV Mean Gradient 6.0 mmHg AV Velocity Time Integral 38.0 cm LVOT Peak Velocity 120.0 cm/s LVOT Peak Gradient 5.8 mmHg LVOT Velocity Time Integral 29.7 cm LVOT Cardiac Index 2416.1 cm?/min?m? AV Area Cont Eq vti 2.2 cm? AV Area Cont Eq pk 2.1 cm? MV Area PHT 2.7 cm? Mitral E Point Velocity 52.3 cm/s Mitral A Point Velocity 71.0 cm/s Mitral E to A Ratio 0.7 LV E' Lateral Velocity 5.3 cm/s Mitral E to LV E' Lateral Ratio 9.8 LV E' Septal Velocity 3.7 cm/s Mitral E to LV E' Septal Ratio 14.1 TR Peak Velocity 216.3 cm/s TR Peak Gradient 18.7 mmHg PV Peak Velocity 121.0 cm/s PV Peak Gradient 5.9 mmHg FINDINGS Left Ventricle Normal-sized left ventricle evidence of mild inferior and posterior wall hypokinesis with preserved left ventricular ejection fraction of 50%. Right Ventricle The right ventricle is normal in size and systolic function. The estimated right ventricular systolic pressure, 32 mmHg with RAP 3. Mild HTN Left Atrium The left atrial cavity size is moderately increased. Right Atrium The right atrium is normal by two-dimensional imaging, color flow and Doppler imaging with no structural abnormalities, no thrombus formation present. Atrial Septum The interatrial septum appears normal with no evidence of a shunt. Aorta The aorta is normal by two-dimensional, color flow and Doppler interrogation. Mitral Valve The mitral valve is normal by two-dimensional, color flow and Doppler interrogation. Mild mitral regurgitation. Aortic Valve Aortic valve sclerosis without stenosis. Tricuspid Valve The tricuspid valve is normal by two-dimensional, color flow and Doppler interrogation. There is mild tricuspid valve regurgitation. Pulmonic Valve The pulmonic valve is not well visualized. Mild pulmonic valve regurgitation. Vessels The pulmonary artery appears normal. The inferior vena cava pulmonary and hepatic veins appear normal. Pericardium The pericardium is normal by two-dimensional imaging. There is no significant pericardial effusion. Other Findings left pleural effusion CONCLUSIONS Indication: pul edema Normal size left ventricle mild inferior posterobasal hypokinesis ejection fraction of 50%. Normal right ventricular size and function. Moderate dilated LA Aortic valve sclerosis without stenosis. There is mild tricuspid valve regurgitation with normal PA pressures Mild mitral regurgitation Mild pulmonic valve regurgitation Pleural effusion is present Renée Andrews (Electronically Signed) Final Date: 16 June 2025 17:22
--- NOTE | 2025-06-15 13:28 | PC.NURSE ---
Dr. Marquis is bedside talking with pt. and pt.'s family.
[2025-06-15] MEDS: NITROGLYCERIN OINT 2% 1 INCH PACKET TOP (14:27)
[2025-06-15] MEDS: PANTOPRAZOLE 40 MG TABLET PO (14:28)
[2025-06-15] MEDS: AMIODARONE HCL 200 MG TABLET PO (14:29)
[2025-06-15] MEDS: TAMSULOSIN HCL 0.4 MG CAPSULE PO (14:31)
[2025-06-15] MEDS: HEPARIN SOD INJ 5000 UNIT/ML VIAL 4000 UNIT IV (14:32)
[2025-06-15] MEDS: Heparin/D5w 25K 250 ML Ivpb 25,000 UNIT/250 ML BAG 9.003 UNIT IV (14:35)
--- NOTE | 2025-06-15 15:13 | PD.NEPHHP ---
Documentation for date of: 06/15/25 History of Present Illness History of Present Illness Chief complaint: Chest pain, shortness of breath History of present illness: Informant and patient Mr. Boothe is an 84-year-old gentleman with extensive cardiac history of coronary artery disease, stents and angioplasty (under the care of Dr. 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 Patient do not recall having any high salty foods or [place] restaurant foods. He is very strict on his diet. However due to low blood pressure recently his hydrochlorothiazide was discontinued. Patient stated his chest pain was substernal especially in the epigastric area. Denies any orthopnea. He has some swelling in the lower extremities. In the ED, EKG was negative for T wave or ST changes but did show a right bundle branch block that is not new. Chest x-ray showed significant vascular congestion. Labs showed BNP of 1700 and troponins negative x 2. He was given Lasix 80 mg IV x 1 and had approximately 2.8 L of urine output with significant improvement in his shortness of breath. Patient was admitted to telemetry. Dr. Andrews was consulted for CHF exacerbation. Due to his extensive cardiac history-Dr. Andrews ordered heparin drip although patient started to have hematuria and it was discontinued. He is started on Bumex 1 mg IV twice daily. Home medications included rosuvastatin, aspirin, calcitriol, benazepril, allopurinol, hydralazine, dutasteride, paroxetine, Protonix,Toprol, amiodarone, Eliquis, tamsulosin. SHx: Denies smoking, alcohol consumption, illicit drug use PSHx: CABG in 2003, stent placement x 2 in 2013, stent placement 2016, left knee repair 2018, back surgery 2023, angiogram 2023 Allergies: Sulfonamides and penicillin Patient in emergency department. at bedside. Review of Systems Review of Systems Narrative Review of Systems: CONSTITUTIONAL: Patient denies any fever, chills. Complaining of fatigue HEENT: Denies any visual disturbances or hearing problems. CARDIOVASCULAR: Patient did have chest pain, shortness of breath, swelling in the lower extremities. PULMONARY: Patient complaining of shortness of breath, cough. GASTROINTESTINAL: Patient denies any abdominal pain, constipation, nausea, vomiting, diarrhea. GENITOURINARY: Patient denies any urinary symptoms of burning or frequency or hematuria, denies any form in the urine. SKIN: Denies any rash. MUSCULOSKELETAL: complaining of arthritis pains NEUROLOGICAL: Denies any neurological problems of strokes, seizures or confusion. Admits mild depression per have some memory lapses Past Medical History Past Medical History NEUROLOGIC: Negative Neurological Disorders or Seizures CARDIAC: Positive Cardiac Disorders, Myocardial Infarction, Atrial Fibrillation, Coronary Artery Disease, Hypercholesterolemia, Congestive Heart Failure, Edema and Hypertension RESPIRATORY: Negative Respiratory Disorders, Chronic Obstructive Pulmonary Disease (COPD), Smoking or Smoking Exposure GASTROINTESTINAL: Positive Gastroesophageal Reflux Disease; Negative Gastrointestinal Disorders, Hepatitis or Hemorrhoids GENITOURINARY: Positive Genitourinary Disorders, Chronic Kidney Disease and Renal Disease MUSCULOSKELETAL: Positive Musculoskeletal Disorders, Arthritis, Gout and Fractures ENT: Positive Cataracts ENDOCRINE: Negative Endocrine Disorders, Diabetes Mellitus Type 1 or Diabetes Mellitus Type 2 HEMATOLOGIC: Negative Blood Disorders PSYCHO/SOCIAL: Negative Depression or Anxiety OTHER HISTORY: Positive Hospitalization and Anesthesia Reactions (pt unable to void for 1 month, confusion & hallucinations x2 weeks); Negative Autoimmune Disease, Shingles, Falls, Blood Transfusions, Blood Transfusion Reaction, Chemotherapy, Radiation Therapy, Chicken Pox, Measles or Cancer Family History FAMILY HISTORY: Negative Family Psychiatric Problems, Family Respiratory Disorders, Family Cardiac Disorders, Family Gastrointestinal Problems, Family Cancer, Family Surgery or Family Anesthesia Reaction Surgical History SURGICAL: Positive Cardiac Surgery, Coronary Artery Bypass Graft, Coronary Stent, Angiogram, Eye Surgery, Tonsillectomy and Arthroscopy; Negative Abdominal Surgery Social History SMOKING STATUS: Never smoker SUBSTANCE USE: does not use Meds Home Medications and Allergies Home Medications ?Medication ?Instructions ?Recorded ?Confirmed ?Type benazepril 20 mg tablet 20 mg PO QDAY ##0 12/09/13 06/15/25 History paroxetine HCl 30 mg tablet 30 mg PO QDAY ##0 12/09/13 06/15/25 History calcitriol 0.5 mcg capsule 0.5 mcg PO HS ##90 08/20/17 06/15/25 History pantoprazole 40 mg tablet,delayed 40 mg PO QDAY ##90 08/20/17 06/15/25 History release hydralazine 50 mg tablet 50 mg PO DAILY 12/06/21 06/15/25 History rosuvastatin 20 mg tablet 20 mg PO HS 12/06/21 06/15/25 History hydrochlorothiazide 12.5 mg capsule 12.5 mg PO QDAY 12/08/21 06/15/25 History amiodarone 200 mg tablet 200 mg PO DAILY 06/08/24 06/15/25 History allopurinol 100 mg tablet 100 mg PO 1XD 06/16/24 06/15/25 History apixaban 5 mg tablet (Eliquis) 2.5 mg PO BID 06/16/24 06/15/25 History metoprolol succinate 50 mg 50 mg PO QDAY 06/16/24 06/15/25 History tablet,extended release 24 hr dutasteride 0.5 mg capsule 0.5 mg PO QDAY 06/29/24 06/15/25 History (Avodart) Allergies Allergy/AdvReac Type Severity Reaction Status Date / Time Penicillins Allergy Unknown RASH Verified 06/15/25 09:02 Sulfa (Sulfonamide Allergy Unknown RASH Verified 06/15/25 09:02 Antibiotics) Exam Vital Signs Temp Pulse Resp BP Pulse Ox O2 Del Method 36.6 C 56 L 24 H 154/84 H 95 Room Air 06/15/25 14:12 06/15/25 14:29 06/15/25 14:12 06/15/25 14:29 06/15/25 14:12 06/15/25 14:12 Narrative Exam GENERAL APPEARANCE: Elderly gentleman currently seen in the emergency department. at bedside NECK: Neck supple, no JVD or bruit CARDIOVASCULAR: Heart irregular, 2/6 murmurs LUNGS/CHEST: Fine crackles at bilateral bases ABDOMEN: Soft, nontender, nondistended. No masses. Normal bowel sounds. EXTREMITIES: 2+ edema worse on the left side. SKIN: Skin exam normal without any rashes MUSCULOSKELETAL: In bed PSYCHIATRIC: Normal mood, affect LYMPHATICS: No lymphadenopathy noted NEUROLOGICAL : No neurological deficits Results: Labs 06/15/25 09:35 06/15/25 09:35 Labs: Short CBC 06/15/25 Range/Units 09:35 WBC 9.0 (3.8-10.6) Thou/mm3 Hgb 11.7 L (13.5-16.0) g/dL Hct 35.9 L (41.0-53.0) % Plt Count 238 D (140-440) Thou/mm3 BMP 06/15/25 09:35 Sodium 143 Potassium 4.3 Chloride 111 H Carbon Dioxide 25.3 BUN 20 Creatinine 1.3 Glucose 114 H Calcium 9.2 Cardiac Enzymes 06/15/25 06/15/25 Range/Units 09:35 11:45 Troponin I < 0.020 < 0.020 (0.0-0.045) ng/mL Liver Function 06/15/25 Range/Units 09:35 Total Bilirubin 0.7 (0.3-1.2) mg/dL AST 23 (0-34) U/L ALT 19 (10-49) U/L Alkaline Phosphatase 123 H (46-116) U/L Albumin 3.6 (3.4-4.8) gm/dL Assessment & Plan Assessment and plan (1) Pulmonary edema: Status: Acute Assessment and plan: Patient seems to have congestive cardiac failure. Extensive cardiac history. Dr. Andrews was consulted. Agree with diuretics. Strict I&O's ordered. Echocardiogram ordered. (2) Chest pain: Status: Acute Assessment and plan: Chest pain will rule out PR. Serial troponins, EKG ordered. Heparin drip was discontinued due to hematuria. Will monitor closely. (3) CAD (coronary artery disease) of artery bypass graft: Status: Chronic Assessment and plan: Extensive history of CABG, stents x 12-Dr. 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 Creatinine stable (5) HLD (hyperlipidemia): Status: Acute Assessment and plan: On high intensity statin (6) HTN (hypertension): Status: Acute Assessment and plan: Resume home blood pressure medications (7) Atrial fibrillation: Status: Acute Assessment and plan: Patient was started on heparin drip-discontinued due to hematuria. Continue with amiodarone. (8) Hx of coronary artery disease: Status: Acute Assessment and plan: Dr. Andrews to decide on angiogram. Additional Assessment & Plan Additional Plan: Estimated length of stay 2 days DVT prophylaxis SCD GI prophylaxis pantoprazole CODE STATUS full code Disposition Home Plan of care discussed with Quality Measures Quality Measures none Advance care planning discussed with:: patient
--- NOTE | 2025-06-15 15:24 | PC.NURSE ---
SPOKE TO DR. MTZ AND INFORMED PT'S HEPARIN DRIP HAS BEEN STARTED AND PT NOW HAVING PINK-TINGED URINE. PER DR. MTZ, CALL DR. LEVI AT THIS TIME. CALLED DR. Thee LEVI AND INFORMED PT'S HEPARIN DRIP HAS BEEN STARTED AND PT NOW HAVING PINK-TINGED URINE; PER DR. LEVI, DISCONTINUE HEPARIN DRIP. HEPARIN DRIP STOPPED AT THIS TIME.
[2025-06-15 15:40] LABS: Glucose Estimated Average 105 mg/dL (80-131); Hemoglobin A1C 5.3 % Hgb (4.8-6.0)
--- NOTE | 2025-06-15 17:52 | ESCONSULT_ITS ---
<Statement entered by Radha Marquis MD - 06/16/25 17:11> I personally evaluated examined the patient in the emergency room subsequently telemetry floor came to the hospital acute decompensated systolic heart failure and diastolic heart failure patient had no history of ischemic cardiomyopathy CAD status post multivessel bypass graft surgery with occluded vein graft circumflex artery and severe distal disease of right coronary artery JOSE to LAD is rudimentary and small but burns paiute circumflex and ramus were patent intermedius were patent by angiogram before but concerned that patient has sudden onset of acute heart failure suspect during ischemic etiology aggressive management IV Bumex GDMT diuretics will be continued and blood pressure is quite high we will continue to monitor closely continue beta-gildardo metoprolol hydralazine use as necessary to control her blood pressure to goal patient was already on Eliquis at home will be discontinuing that IV heparin was started but had hematuria we will discontinue that for next 48 hours in preparation for coronary and bypass graft angiogram possible right and left heart cardiac catheterization.I personally examined evaluated the patient with resident physician PGY 2 Dr. Omar MCKENZIE agree with the treatment plan recommendation as documented. HPI Data of Consult Requesting Physician: Kevin Gandhi MD Admitting Provider: Kevin Gandhi MD Attending Provider: Kevin Gandhi MD Primary Care Provider: Kevin Gandhi MD Consult Narrative History of present illness: Heladio Boothe is an 84-year-old male with a significant cardiac history including bypass graft of left circumflex that became occluded and underwent stent placements that also showed evidence of restenosis and underwent subsequent angioplasty, bypass graft from JOSE to LAD, bypass graft of RCA, and stent placement in burns paiute diagonal branch of LAD. In addition, has history of atrial fibrillation on amiodarone and Eliquis, hyperlipidemia, BPH, and gout and presents to the ED for shortness of breath and chest discomfort that started after he woke up at around 5:30 AM today. Describes his chest discomfort as substernal and right-sided, does not radiate, reaches up to 6/10 in severity, and different in nature compared to his previous episodes requiring coronary artery intervention. Denies orthopnea, increased lower extremity swelling, and PND. In the ED, EKG was negative for T wave or ST changes but did show a right bundle branch block that is not new. Chest x-ray showed significant vascular congestion. Labs showed BNP of 1700 and troponins negative x 2. He was given Lasix 80 mg IV x 1 and had approximately 2.8 L of urine output with significant improvement in his shortness of breath. Given his complex cardiac history and presenting symptoms, concerns for acute coronary syndrome and patient was started on a heparin drip in ED but noted to have pink-colored urine and so heparin drip was held. Medications: Rosuvastatin 20 mg, aspirin 81 mg, pantoprazole 40 mg, allopurinol 100 mg, metoprolol succinate 50 mg, amiodarone 200 mg daily, Eliquis 2.5 mg, tamsulosin 0.4 mg SHx: Denies smoking, alcohol consumption, illicit drug use PSHx: CABG in 2003, stent placement x 2 in 2013, stent placement 2017, left knee repair 2018, back surgery 2023, angiogram 2023 Allergies: Sulfonamides and penicillin cc:: cc: Kevin Gandhi MD Review of Systems Review of Systems Systems Reviewed: All systems reviewed, normal except as documented Exam Vital Signs Temp Pulse Resp BP Pulse Ox O2 Del Method O2 Flow Rate 97.2 F 58 L 19 144/80 H 96 Nasal Cannula 2 06/15/25 17:29 06/15/25 17:29 06/15/25 17:29 06/15/25 17:29 06/15/25 17:29 06/15/25 17:29 06/15/25 17:29 Narrative Exam General: AOx3, no acute distress, able to speak full sentences HEENT: NC/AT, mucous membranes moist, bilateral sclera anicteric Cardiovascular: regular rate and rhythm, S1/S2 present, no murmurs appreciated Pulmonary: left-sided crackles at base, right side clear to auscultation, no rales/rhonchi/wheezes Abdominal: soft, non-tender, non-distended, no rebound/guarding, normal bowel sounds present Musculoskeletal: normal ROM, left lower extremity edema secondary to removal of veins for grafting Skin: warm and dry, intact, no rashes Neuro: CN II-XII intact, no focal deficits Results Labs 06/15/25 09:35 06/15/25 09:35 Labs: Short CBC 06/15/25 Range/Units 09:35 WBC 9.0 (3.8-10.6) Thou/mm3 Hgb 11.7 L (13.5-16.0) g/dL Hct 35.9 L (41.0-53.0) % Plt Count 238 D (140-440) Thou/mm3 BMP 06/15/25 09:35 Sodium 143 Potassium 4.3 Chloride 111 H Carbon Dioxide 25.3 BUN 20 Creatinine 1.3 Glucose 114 H Calcium 9.2 Cardiac Enzymes 06/15/25 06/15/25 Range/Units 09:35 11:45 Troponin I < 0.020 < 0.020 (0.0-0.045) ng/mL Liver Function 06/15/25 Range/Units 09:35 Total Bilirubin 0.7 (0.3-1.2) mg/dL AST 23 (0-34) U/L ALT 19 (10-49) U/L Alkaline Phosphatase 123 H (46-116) U/L Albumin 3.6 (3.4-4.8) gm/dL Quality Measures Quality Measures none Advance care planning discussed with:: patient and spouse Medications Home Medications and Allergies Home Medications ?Medication ?Instructions ?Recorded ?Confirmed ?Type benazepril 20 mg tablet 20 mg PO QDAY ##0 12/09/13 1 History paroxetine HCl 30 mg tablet 30 mg PO QDAY ##0 12/09/13 06/15/25 History calcitriol 0.5 mcg capsule 0.5 mcg PO HS ##90 08/20/17 06/15/25 History pantoprazole 40 mg tablet,delayed 40 mg PO QDAY ##90 1 10/21/16 06/15/25 History release hydralazine 50 mg tablet 50 mg PO DAILY 12/06/2110/09 History rosuvastatin 20 mg tablet 20 mg PO HS 12/06/21 5 History hydrochlorothiazide 12.5 mg capsule 12.5 mg PO QDAY 06/15/25 History amiodarone 200 mg tablet 200 mg PO DAILY 06/08/2410/09 History allopurinol 100 mg tablet 100 mg PO 1XD 06/16/2406/15 History apixaban 5 mg tablet (Eliquis) 2.5 mg PO BID 06/16/24 06/15/25 History metoprolol succinate 50 mg 50 mg PO QDAY 06/16/2410/09 History tablet,extended release 24 hr dutasteride 0.5 mg capsule 0.5 mg PO QDAY 06/29/2410/09 History (Avodart) Allergies Allergy/AdvReac Type Severity Reaction Status Date / Time Penicillins Allergy Unknown RASH Verified 06/15/25 09:02 Sulfa (Sulfonamide Allergy Unknown RASH Verified 06/15/25 09:02 Antibiotics) Visit Medications Allopurinol (Allopurinol 100 Mg Tablet) 100 mg PO QDAY [facility] Stop: 07/16/25 08:59 Amiodarone HCl (Amiodarone Hcl 200 Mg Tablet) 200 mg PO QDAY [facility] Stop: 07/15/25 13:14 Last Admin: 06/15/25 14:29 Dose: 200 mg Atorvastatin Calcium (Atorvastatin Calcium 20 Mg Tablet) 80 mg PO QDAY [facility] Stop: 07/16/25 08:59 Bumetanide (Bumetanide Inj 0.25 Mg/Ml Vial 4 Ml) 2 mg IVP BID [facility] Stop: 07/15/25 20:59 Hydralazine HCl (Hydralazine Hcl 25 Mg Tablet) 50 mg PO TID [facility] Stop: 07/15/25 13:59 Last Admin: 06/15/25 14:28 Dose: 50 mg Heparin Sodium/Dextrose (Heparin In D5w Ivpb) 25,000 unit in 250 mls @ 9.003 mls/hr IV .Q24H [facility]; Protocol Stop: 06/29/25 13:29 Last Titration: 06/15/25 15:28 Dose: 0 units/kg/hr, 0 mls/hr Lisinopril (Lisinopril 20 Mg Tablet) 20 mg PO BID [facility] Stop: 07/15/25 13:29 Last Admin: 06/15/25 14:38 Dose: Not Given Metoprolol Succinate (Metoprolol Succinate Xl 25 Mg Tabcr) 25 mg PO QDAY [facility] Stop: 07/16/25 08:59 Nitroglycerin (Nitroglycerin 0.4 Mg Subl Btl #25) 0.4 mg SL Q5MIN [facility] Stop: 06/17/25 11:46 Ondansetron HCl (Ondansetron Inj 2 Mg/Ml Inj 2 Ml) 4 mg IVP Q1HR PRN PRN Reason: PERSISTENT NAUSEA OR VOMITING Pantoprazole Sodium (Pantoprazole 40 Mg Tablet) 40 mg PO QDAY [facility] Stop: 07/15/25 13:19 Last Admin: 06/15/25 14:28 Dose: 40 mg Paroxetine HCl (Paroxetine Hcl 10 Mg Tablet) 30 mg PO QDAY [facility] Stop: 07/16/25 08:59 Discontinued Medications Aspirin (Aspirin 81 Mg Chew) 324 mg PO X1 ONE Stop: 06/15/25 09:20 Last Admin: 06/15/25 09:37 Dose: Not Given Furosemide (Furosemide Inj 10 Mg/Ml 4ml Vial) 80 mg IVP X1 ONE Stop: 06/15/25 11:35 Last Admin: 06/15/25 11:57 Dose: 80 mg Heparin Sodium (Porcine) (Heparin Sod Inj 5000 Unit/Ml Vial) 4,000 unit IV X1 ONE; Protocol Stop: 06/15/25 13:26 Last Admin: 06/15/25 14:32 Dose: 4,000 unit Influenza Virus Vaccine Quadrival (Influenza Virus Quadrivalent 0.5 Ml Syringe) 0.5 ml IMi .ONCE ONE Stop: 06/15/25 17:38 Nitroglycerin (Nitroglycerin Oint 2% 1 Inch Packet) 1 inch TOP Q6HR ONE Stop: 06/15/25 13:23 Last Admin: 06/15/25 14:27 Dose: 1 inch Tamsulosin HCl (Tamsulosin Hcl 0.4 Mg Capsule) 0.4 mg PO X1 ONE Stop: 06/15/25 13:15 Last Admin: 06/15/25 14:31 Dose: 0.4 mg Assessment & Plan Plan Heladio Boothe is an 84-year-old male with a significant cardiac history including CAD requiring CABG and additional stents, atrial fibrillation on amiodarone and eliquis, hyperlipidemia, and BPH who is admitted for ACS work-up vs CHF. #? Acute coronary syndrome #? New onset CHF vs pulmonary edema secondary to ACS #History of CAD s/p CABG and stent placement Presents with acute onset chest discomfort and shortness of breath upon waking up in the morning. Was in usual state of health the day prior. EKG unremarkable other than old right bundle branch block and initial troponin is negative but BNP noted to be significantly elevated at 1700. Patient was given Lasix 80 mg IV x 1 in ED and had significant urine output of 2.8 L prior to being transferred to the floors with significant improvement in his shortness of breath. Given abrupt onset of symptoms and elevation in BNP and pulmonary edema seen on imaging, ischemic event is high on differential given his complex cardiac history despite normal troponin and EKG. Will continue with diuresis with Bumex, hold heparin at this time given signs of bleeding in urine, follow- up echo, and plan for cardiac cath in upcoming days. ? Bumex 1 mg IV twice daily ? Strict I's and O's, daily weights ? Follow-up echo ? Hold heparin at this time ? Plan for cardiac cath in the coming days for further evaluation #Atrial fibrillation ? Continue amiodarone 200 mg daily ? Hold Eliquis at this time given signs of bleeding in urine #Hyperlipidemia ? Atorvastatin 80 mg daily #Hypertension ? Lisinopril 20 mg twice daily ? Metoprolol succinate 25 mg daily ----- Plan discussed with attending physician Dr. Benitez Mckenzie MD PGY-2 Internal Medicine
[2025-06-15 20:52] LABS: Partial Thromboplastin Time 30.8 Seconds (22.0-36.0)
[2025-06-15 21:18] LABS: Collection Type, Urine Clean Catch; Squamous Epithelial Cell,Urine 0 /hpf (0-5)
[2025-06-15 21:32] LABS: Bilirubin,Urine Negative (Negative); Blood,Urine 3+ (Negative); Clarity,Urine Clear (Clear/Hazy); Color,Urine Colorless (Lt Yel-Yel); Glucose, Urine Negative (Negative); Ketones,Urine Negative (Negative); Leukocyte Esterase,Urine Negative (Negative); Nitrite,Urine Negative (Negative); PH,Urine 5.0 (5.0-7.0); Protein,Urine Negative (Neg - Trace); RBC,Urine 779 /hpf (0-3); Specific Gravity,Urine 1.008 (1.001-1.035); Urobilinogen,Urine Negative mg/dL (0.0-1.0); WBC,Urine 3 /hpf (0-5)
[2025-06-16] VITALS (17 sets, daily range): BP systolic 107–150; BP diastolic 53–78; PULSE 35–57; RESP 14–22; TEMP 36.1–36.5; O2SAT 96–98; BMI 26.6
[2025-06-16 05:35] LABS: Basophils # (Auto) 0.0 Thou/mm3 (0.0-0.2); Basophils % (Auto) 0 % (0-2.5); Eosinophils # (Auto) 0.2 Thou/mm3 (0.0-0.5); Eosinophils % (Auto) 2 % (0-10); Hematocrit 35.1 % (41.0-53.0); Hemoglobin 11.7 g/dL (13.5-16.0); Immature Granulocytes Auto 0.03 Thou/mm3 (0.00-0.00); Lymphocytes # (Auto) 0.9 Thou/mm3 (1.0-4.8); Lymphocytes % (Auto) 9 % (10-50); Mean Corpuscular HGB Conc 33.3 g/dl (31.0-37.0); Mean Corpuscular Hemoglobin 30.8 pg (25.0-35.0); Mean Corpuscular Volume 92 fL (80-100); Monocytes # (Auto) 1.2 Thou/mm3 (0.0-0.8); Monocytes % (Auto) 13 % (0-12); Neutrophils # (Auto) 7.3 Thou/mm3 (1.8-7.7); Neutrophils % (Auto) 76 % (37-80); Nucleated Red Blood Cell # 0.00 Thou/mm3 (0.00-0.00); Nucleated Red Blood Cell % 0 /100 WBC (0); Platelet Count 244 Thou/mm3 (140-440); RDW Standard Deviation 54.1 fL (35.1-43.9); Red Blood Count 3.80 Miln/mm3 (4.50-5.90); White Blood Count 9.6 Thou/mm3 (3.8-10.6)
[2025-06-16] MEDS: BUMETANIDE INJ 0.25 MG/ML VIAL 4 ML 1 MG IVP ×2 (05:49→17:20)
[2025-06-16 06:26] LABS: Alanine Aminotransferase 20 U/L (10-49); Albumin, Serum 3.4 gm/dL (3.4-4.8); Albumin/Globulin Ratio 1.4 (1.2-2.2); Alkaline Phosphatase 114 U/L (46-116); Anion Gap 9 (7-16); Aspartate Amino Transferase 22 U/L (0-34); BUN/Creatinine Ratio 14 Ratio (12-20); Bilirubin,Total 1.0 mg/dL (0.3-1.2); Blood Urea Nitrogen 19 mg/dL (9-23); Calcium 8.5 mg/dL (8.3-10.6); Calcium (Corrected) 9.0 mg/dL (8.5-10.1); Carbon Dioxide 27.8 mMol/L (20.0-31.0); Cardiac Risk Estimate 1.9 RATIO (4.0-6.7); Chloride 107 mMol/L (98-107); Cholesterol 74 mg/dL (132-200); Creatinine (Component) 1.4 mg/dL (0.6-1.3); Estimated Creatinine Clearance 35.4 mL/min (>60); Globulin 2.4 gm/dL (2.3-3.5); Glucose 95 mg/dL (74-106); HDL Cholesterol 40 mg/dL (40-60); LDL Cholesterol,Calculated 22 mg/dL (0-130); Magnesium 1.7 mg/dL (1.6-2.6); Osmolality,Calculated 289 (275-295); Potassium 3.6 mMol/L (3.4-5.1); Sodium 144 mMol/L (136-145); Total Protein 5.8 gm/dL (5.7-8.2); Triglycerides 61 mg/dL (30-150); Troponin I < 0.020 ng/mL (0.0-0.045); eGFR 50 See Note
--- NOTE | 2025-06-16 08:38 | ESPR_ITS ---
<Statement entered by Radha Marquis MD - 06/19/25 16:36> I personally examined the patient along with resident physician PGY 2 and the patient is doing clinically well heart failure well compensated will schedule patient right and left heart cardiac catheter tomorrow risk benefits tolerate visit. The patient will schedule patient for coronary angiogram in the morning assess the patency of the grafts. Right heart catheter will be performed to assess filling pressures and wedge pressures. Documentation for date of: 06/16/25 Subjective Subjective Interval history: No acute overnight events. Seen and examined at bedside patient resting comfortably in bed. He continues to feel that his shortness of breath has improved and is on 3 L nasal cannula saturating 96%. Continues to be on Bumex 1 mg IV twice daily and is net -2.3 L throughout hospital stay. Plan for cardiac cath tomorrow morning and n.p.o. after midnight. Exam Vital Signs Temp Pulse Resp BP Pulse Ox O2 Del Method O2 Flow Rate 97.0 F 51 L 18 140/70 H 96 Nasal Cannula 3 06/16/25 07:25 06/16/25 07:25 06/16/25 07:25 06/16/25 07:25 06/16/25 07:25 06/16/25 07:25 06/16/25 07:25 Narrative Exam General: AOx3, no acute distress, able to speak full sentences HEENT: NC/AT, mucous membranes moist, bilateral sclera anicteric Cardiovascular: regular rate and rhythm, S1/S2 present, no murmurs appreciated Pulmonary: left-sided crackles at base, right side clear to auscultation, no rales/rhonchi/wheezes Abdominal: soft, non-tender, non-distended, no rebound/guarding, normal bowel sounds present Musculoskeletal: normal ROM, left lower extremity edema secondary to removal of veins for grafting Skin: warm and dry, intact, no rashes Neuro: CN II-XII intact, no focal deficits Objective Labs 06/16/25 04:50 06/16/25 04:50 Labs: Laboratory Results - last 24 hr 06/15/25 06/15/25 06/15/25 09:35 11:45 20:27 WBC 9.0 RBC 3.80 L Hgb 11.7 L Hct 35.9 L MCV 95 MCH 30.8 MCHC 32.6 RDW Std Deviation 56.5 H Plt Count 238 D Neut % (Auto) 81 H Lymph % (Auto) 7 L [place] % (Auto) 10 Eos % (Auto) 2 Baso % (Auto) 0 Neut # (Auto) 7.3 Lymph # (Auto) 0.6 L [place] # (Auto) 0.9 H Eos # (Auto) 0.1 Baso # (Auto) 0.0 Immature Gran # (Auto) 0.05 H Absolute Nucleated RBC 0.00 Immature Gran % 1 H Nucleated RBC % 0 PT 12.3 H INR 1.2 APTT 31.5 30.8 Sodium 143 Potassium 4.3 Chloride 111 H Carbon Dioxide 25.3 Anion Gap 7 BUN 20 Creatinine 1.3 Estim Creat Clear Calc 38.2 L eGFR 54 L BUN/Creatinine Ratio [address]ucose [address] Glu mg/dL 105 Hemoglobin A1c 5.3 Calculated Osmolality 288 Calcium 9.2 Corrected Calcium 9.5 Magnesium 2.0 Total Bilirubin 0.7 AST 23 ALT 19 Alkaline Phosphatase 123 H Troponin I < 0.020 < 0.020 B-Natriuretic Peptide 1740 H* Total Protein 6.0 Albumin 3.6 Globulin 2.4 Albumin/Globulin Ratio 1.5 Triglycerides Cholesterol LDL Cholesterol, Calc HDL Cholesterol Cholesterol/HDL Ratio Ur Collection Type Urine Color Urine Clarity Urine pH Ur Specific [place] Urine Protein Urine Glucose (UA) Urine Ketones Urine Blood Urine Nitrite Urine Bilirubin Urine Urobilinogen (Auto) Ur Leukocyte Esterase Urine RBC Urine WBC Ur Squamous Epith Cells Urine Bacteria 06/15/25 06/16/25 21:05 04:50 WBC 9.6 RBC 3.80 L Hgb 11.7 L Hct 35.1 L MCV 92 MCH 30.8 MCHC 33.3 RDW Std Deviation 54.1 H Plt Count 244 Neut % (Auto) 76 Lymph % (Auto) 9 L [place] % (Auto) 13 H Eos % (Auto) 2 Baso % (Auto) 0 Neut # (Auto) 7.3 Lymph # (Auto) 0.9 L [place] # (Auto) 1.2 H Eos # (Auto) 0.2 Baso # (Auto) 0.0 Immature Gran # (Auto) 0.03 H Absolute Nucleated RBC 0.00 Immature Gran % 0 Nucleated RBC % 0 PT INR APTT Sodium 144 Potassium 3.6 D Chloride 107 Carbon Dioxide 27.8 Anion Gap 9 BUN 19 Creatinine 1.4 H Estim Creat Clear Calc 35.4 L eGFR 50 L BUN/Creatinine Ratio [address] Glu mg/dL Hemoglobin A1c Calculated Osmolality 289 Calcium 8.5 Corrected Calcium 9.0 Magnesium 1.7 Total Bilirubin 1.0 AST 22 ALT 20 Alkaline Phosphatase 114 Troponin I < 0.020 B-Natriuretic Peptide Total Protein 5.8 Albumin 3.4 Globulin 2.4 Albumin/Globulin Ratio 1.4 Triglycerides 61 Cholesterol 74 L LDL Cholesterol, Calc 22 HDL Cholesterol 40 Cholesterol/HDL Ratio 1.9 L Ur Collection Type Clean Catch Urine Color Colorless A Urine Clarity Clear Urine pH 5.0 Ur Specific [place] 1.008 Urine Protein Negative Urine Glucose (UA) Negative Urine Ketones Negative Urine Blood 3+ A Urine Nitrite Negative Urine Bilirubin Negative Urine Urobilinogen (Auto) Negative Ur Leukocyte Esterase Negative Urine RBC 779 H Urine WBC 3 Ur Squamous Epith Cells 0 Urine Bacteria None Quality Measures Quality Measures none Advance care planning discussed with:: patient and spouse Assessment & Plan Assessment Current Active Medications: Generic Name Dose Route Start Last Admin Trade Name Freq PRN Reason Stop Dose Admin Allopurinol 100 mg 06/16/25 09:00 Allopurinol 100 Mg Tablet PO 07/16/25 08:59 QDAY INOCENTE Amiodarone HCl 200 mg 06/15/25 13:15 06/15/25 14:29 Amiodarone Hcl 200 Mg Tablet PO 07/15/25 13:14 200 mg QDAY INOCENTE Administration Atorvastatin Calcium 80 mg 06/16/25 09:00 Atorvastatin Calcium 20 Mg Tablet PO 07/16/25 08:59 QDAY INOCENTE Bumetanide 1 mg 06/15/25 21:15 06/16/25 05:49 Bumetanide Inj 0.25 Mg/Ml Vial 4 Ml IVP 07/15/25 21:14 1 mg BIDD INOCENTE Administration Hydralazine HCl 50 mg 06/15/25 14:00 06/16/25 06:38 Hydralazine Hcl 25 Mg Tablet PO 07/15/25 13:59 50 mg TID INOCENTE Administration Heparin Sodium/Dextrose 25,000 unit in 250 mls @ 9.003 mls/hr 06/15/25 13:30 06/15/25 15:28 Heparin In D5w Ivpb IV 06/29/25 13:29 0 units/kg/hr .Q24H INOCENTE 0 mls/hr Protocol Titration 12 UNITS/KG/HR Magnesium Sulfate 2 gm in 50 mls @ 25 mls/hr 06/16/25 07:55 Magnesium Sulfate Ivpb IV 06/16/25 09:54 X1 ONE Lisinopril 20 mg 06/15/25 13:30 06/15/25 21:45 Lisinopril 20 Mg Tablet PO 07/15/25 13:29 Not Given BID INOCENTE Metoprolol Succinate 25 mg 06/16/25 09:00 Metoprolol Succinate Xl 25 Mg Tabcr PO 07/16/25 08:59 QDAY INOCENTE Nitroglycerin 0.4 mg 06/15/25 11:45 Nitroglycerin 0.4 Mg Subl Btl #25 SL 06/17/25 11:46 Q5MIN INOCNETE Ondansetron HCl 4 mg 06/15/25 09:19 Ondansetron Inj 2 Mg/Ml Inj 2 Ml IVP Q1HR PRN PERSISTENT NAUSEA OR VOMITING Pantoprazole Sodium 40 mg 06/15/25 13:20 06/15/25 14:28 Pantoprazole 40 Mg Tablet PO 07/15/25 13:19 40 mg QDAY INOCENTE Administration Paroxetine HCl 30 mg 06/16/25 09:00 Paroxetine Hcl 10 Mg Tablet PO 07/16/25 08:59 QDAY INOCENTE Plan Heladio Boothe is an 84-year-old male with a significant cardiac history including CAD requiring CABG and additional stents, atrial fibrillation on amiodarone and eliquis, hyperlipidemia, and BPH who is admitted for ACS work-up vs CHF. #? Acute coronary syndrome #? New onset CHF vs pulmonary edema secondary to ACS #History of CAD s/p CABG and stent placement Presents with acute onset chest discomfort and shortness of breath upon waking up in the morning. Was in usual state of health the day prior. EKG unremarkable other than old right bundle branch block and initial troponin is negative but BNP noted to be significantly elevated at 1700. Patient was given Lasix 80 mg IV x 1 in ED and had significant urine output of 2.8 L prior to being transferred to the floors with significant improvement in his shortness of breath. Given abrupt onset of symptoms and elevation in BNP and pulmonary edema seen on imaging, ischemic event is high on differential given his complex cardiac history despite normal troponin and EKG. Echo 06/15: Normal LV size, mild inferior and posterobasal hypokinesis with EF of 50%. Moderately dilated LA. Mild TR, mild MR. Pleural effusion present. ? Cardiac cath tomorrow morning ? N.p.o. after midnight ? Bumex 1 mg IV twice daily ? Strict I's and O's, daily weights #Atrial fibrillation ? Continue amiodarone 200 mg daily ? Hold Eliquis at this time given signs of bleeding in urine #Hyperlipidemia ? Atorvastatin 80 mg daily #Hypertension ? Lisinopril 20 mg twice daily ? Metoprolol succinate 25 mg daily ----- Plan discussed with attending physician Dr. Benitez Mckenzie MD PGY-2 Internal Medicine
[2025-06-16] MEDS: METOPROLOL SUCCINATE XL 25 MG TABCR PO (09:01)
[2025-06-16] MEDS: ATORVASTATIN CALCIUM 20 MG TABLET 80 MG PO (09:04)
[2025-06-16] MEDS: PANTOPRAZOLE 40 MG TABLET PO (09:05)
[2025-06-16] MEDS: AMIODARONE HCL 200 MG TABLET PO (09:06)
[2025-06-16] MEDS: Magnesium Sulfate 2 GM Ivpb 2 GM/50 ML BAG IV (09:07)
--- NOTE | 2025-06-16 11:03 | PD.NEPHPROG ---
Documentation for date of: 06/16/25 Subjective Subjective Interval history: Informant and patient Mr. Boothe is an 84-year-old gentleman with extensive cardiac history of coronary artery disease, stents and angioplasty (under the care of Dr. 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 Patient do not recall having any high salty foods or [place] restaurant foods. He is very strict on his diet. However due to low blood pressure recently his hydrochlorothiazide was discontinued. Patient stated his chest pain was substernal especially in the epigastric area. Denies any orthopnea. He has some swelling in the lower extremities. In the ED, EKG was negative for T wave or ST changes but did show a right bundle branch block that is not new. Chest x-ray showed significant vascular congestion. Labs showed BNP of 1700 and troponins negative x 2. He was given Lasix 80 mg IV x 1 and had approximately 2.8 L of urine output with significant improvement in his shortness of breath. Patient was admitted to telemetry. Dr. Andrews was consulted for CHF exacerbation. Due to his extensive cardiac history-Dr. Andrews ordered heparin drip although patient started to have hematuria and it was discontinued. He is started on Bumex 1 mg IV twice daily. Home medications included rosuvastatin, aspirin, calcitriol, benazepril, allopurinol, hydralazine, dutasteride, paroxetine, Protonix,Toprol, amiodarone, Eliquis, tamsulosin. SHx: Denies smoking, alcohol consumption, illicit drug use PSHx: CABG in 2003, stent placement x 2 in 2013, stent placement 2016, left knee repair 2018, back surgery 2023, angiogram 2023 Allergies: Sulfonamides and penicillin Patient in emergency department. at bedside. 06/16/2025 patient currently seen in telemetry. Resting comfortably. Shortness of breath is much better. Spoke to Dr. Andrews-will do angiogram tomorrow. Hold aspirin, heparin. No hematuria. Will DC Baxter catheter. Heart rate seems to be in the lower side. Held metoprolol. Continue with lisinopril, hydralazine. Labs showed creatinine 1.4. Review of Systems Review of Systems Narrative Review of Systems: CONSTITUTIONAL: Patient denies any fever, chills. Complaining of fatigue HEENT: Denies any visual disturbances or hearing problems. CARDIOVASCULAR: Patient did have chest pain, shortness of breath, swelling in the lower extremities-much better PULMONARY: Shortness of breath much better GASTROINTESTINAL: Patient denies any abdominal pain, constipation, nausea, vomiting, diarrhea. GENITOURINARY: Patient denies any urinary symptoms of burning or frequency or hematuria, denies any form in the urine. SKIN: Denies any rash. MUSCULOSKELETAL: complaining of arthritis pains NEUROLOGICAL: Denies any neurological problems of strokes, seizures or confusion. Admits mild depression per have some memory lapses Exam Vital Signs Temp Pulse Resp BP Pulse Ox O2 Del Method O2 Flow Rate 36.1 C 52 L 18 111/53 L 96 Nasal Cannula 3 06/16/25 07:25 06/16/25 09:06 06/16/25 07:25 06/16/25 09:06 06/16/25 07:25 06/16/25 07:25 06/16/25 07:25 Narrative Exam GENERAL APPEARANCE: Elderly gentleman currently seen in telemetry NECK: Neck supple, no JVD or bruit CARDIOVASCULAR: Heart irregular, 2/6 murmurs LUNGS/CHEST: Fine crackles at bilateral bases-much better ABDOMEN: Soft, nontender, nondistended. No masses. Normal bowel sounds. EXTREMITIES: trace edema worse on the left side. SKIN: Skin exam normal without any rashes MUSCULOSKELETAL: In bed PSYCHIATRIC: Normal mood, affect LYMPHATICS: No lymphadenopathy noted NEUROLOGICAL : No neurological deficits Objective Labs 06/17/25 05:03 06/17/25 05:03 Labs: Laboratory Results - last 24 hr 06/15/25 06/15/25 06/15/25 09:35 11:45 20:27 WBC RBC Hgb Hct MCV MCH MCHC RDW Std Deviation Plt Count Neut % (Auto) Lymph % (Auto) [place] % (Auto) Eos % (Auto) Baso % (Auto) Neut # (Auto) Lymph # (Auto) [place] # (Auto) Eos # (Auto) Baso # (Auto) Immature Gran # (Auto) Absolute Nucleated RBC Immature Gran % Nucleated RBC % APTT 30.8 Sodium Potassium Chloride Carbon Dioxide Anion Gap BUN Creatinine Estim Creat Clear Calc eGFR BUN/Creatinine Ratio Glucose Estimated Ave Glu mg/dL 105 Hemoglobin A1c 5.3 Calculated Osmolality Calcium Corrected Calcium Magnesium Total Bilirubin AST ALT Alkaline Phosphatase Troponin I < 0.020 Total Protein Albumin Globulin Albumin/Globulin Ratio Triglycerides Cholesterol LDL Cholesterol, Calc HDL Cholesterol Cholesterol/HDL Ratio Ur Collection Type Urine Color Urine Clarity Urine pH Ur Specific [place] Urine Protein Urine Glucose (UA) Urine Ketones Urine Blood Urine Nitrite Urine Bilirubin Urine Urobilinogen (Auto) Ur Leukocyte Esterase Urine RBC Urine WBC Ur Squamous Epith Cells Urine Bacteria 06/15/25 06/16/25 21:05 04:50 WBC 9.6 RBC 3.80 L Hgb 11.7 L Hct 35.1 L MCV 92 MCH 30.8 MCHC 33.3 RDW Std Deviation 54.1 H Plt Count 244 Neut % (Auto) 76 Lymph % (Auto) 9 L [place] % (Auto) 13 H Eos % (Auto) 2 Baso % (Auto) 0 Neut # (Auto) 7.3 Lymph # (Auto) 0.9 L [place] # (Auto) 1.2 H Eos # (Auto) 0.2 Baso # (Auto) 0.0 Immature Gran # (Auto) 0.03 H Absolute Nucleated RBC 0.00 Immature Gran % 0 Nucleated RBC % 0 APTT Sodium 144 Potassium 3.6 D Chloride 107 Carbon Dioxide 27.8 Anion Gap 9 BUN 19 Creatinine 1.4 H Estim Creat Clear Calc 35.4 L eGFR 50 L BUN/Creatinine Ratio [address] Glu mg/dL Hemoglobin A1c Calculated Osmolality 289 Calcium 8.5 Corrected Calcium 9.0 Magnesium 1.7 Total Bilirubin 1.0 AST 22 ALT 20 Alkaline Phosphatase 114 Troponin I < 0.020 Total Protein 5.8 Albumin 3.4 Globulin 2.4 Albumin/Globulin Ratio 1.4 Triglycerides 61 Cholesterol 74 L LDL Cholesterol, Calc 22 HDL Cholesterol 40 Cholesterol/HDL Ratio 1.9 L Ur Collection Type Clean Catch Urine Color Colorless A Urine Clarity Clear Urine pH 5.0 Ur Specific [place] 1.008 Urine Protein Negative Urine Glucose (UA) Negative Urine Ketones Negative Urine Blood 3+ A Urine Nitrite Negative Urine Bilirubin Negative Urine Urobilinogen (Auto) Negative Ur Leukocyte Esterase Negative Urine RBC 779 H Urine WBC 3 Ur Squamous Epith Cells 0 Urine Bacteria None Assessment & Plan Assessment and plan (1) Pulmonary edema: Status: Acute (2) Chest pain: Status: Acute (3) CAD (coronary artery disease) of artery bypass graft: Status: Chronic (4) Chronic kidney disease, stage III (moderate): Status: Acute (5) HLD (hyperlipidemia): Status: Acute (6) HTN (hypertension): Status: Acute (7) Atrial fibrillation: Status: Acute (8) Hx of coronary artery disease: Status: Acute Additional Assessment & Plan Additional Plan: (1) Pulmonary edema: Status: Acute Assessment and plan: Patient seems to have congestive cardiac failure. Extensive cardiac history. Dr. Andrews was consulted. Agree with diuretics. Strict I&O's ordered. Echocardiogram ordered. (2) Chest pain: Status: Acute Assessment and plan: Chest pain will rule out IA. Serial troponins, EKG ordered. Heparin drip was discontinued due to hematuria. Will monitor closely. Going for angiogram tomorrow (3) CAD (coronary artery disease) of artery bypass graft: Status: Chronic Assessment and plan: Extensive history of CABG, stents x 12-Dr. 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 Creatinine 1.4 (5) HLD (hyperlipidemia): Status: Acute Assessment and plan: On high intensity statin (6) HTN (hypertension): Status: Acute Assessment and plan: Resume home blood pressure medications Will hold metoprolol due to low heart rate (7) Atrial fibrillation: Status: Acute Assessment and plan: Patient was started on heparin drip-discontinued due to hematuria. Continue with amiodarone. Spoke to Dr. Andrews (8) Hx of coronary artery disease: Status: Acute Assessment and plan: Dr. Andrews planning to do angiogram in a.m. Estimated length of stay 3 days DVT prophylaxis SCD GI prophylaxis pantoprazole CODE STATUS full code Disposition Home Plan of care discussed with Quality - progress note Quality Measures Quality Measures: VTE prophylaxis Reason for Continued Stay Reason for Continued Stay: further monitoring
[2025-06-17] VITALS (19 sets, daily range): BP systolic 103–148; BP diastolic 53–75; PULSE 47–56; RESP 13–20; TEMP 36.1–36.9; O2SAT 92–98; BMI 25.8
[2025-06-17 05:59] LABS: Basophils # (Auto) 0.0 Thou/mm3 (0.0-0.2); Basophils % (Auto) 0 % (0-2.5); Eosinophils # (Auto) 0.2 Thou/mm3 (0.0-0.5); Eosinophils % (Auto) 2 % (0-10); Hematocrit 37.2 % (41.0-53.0); Hemoglobin 12.1 g/dL (13.5-16.0); Immature Granulocytes Auto 0.04 Thou/mm3 (0.00-0.00); Lymphocytes # (Auto) 0.9 Thou/mm3 (1.0-4.8); Lymphocytes % (Auto) 10 % (10-50); Mean Corpuscular HGB Conc 32.5 g/dl (31.0-37.0); Mean Corpuscular Hemoglobin 30.3 pg (25.0-35.0); Mean Corpuscular Volume 93 fL (80-100); Monocytes # (Auto) 1.2 Thou/mm3 (0.0-0.8); Monocytes % (Auto) 13 % (0-12); Neutrophils # (Auto) 7.2 Thou/mm3 (1.8-7.7); Neutrophils % (Auto) 76 % (37-80); Nucleated Red Blood Cell # 0.00 Thou/mm3 (0.00-0.00); Nucleated Red Blood Cell % 0 /100 WBC (0); Platelet Count 238 Thou/mm3 (140-440); RDW Standard Deviation 55.0 fL (35.1-43.9); Red Blood Count 3.99 Miln/mm3 (4.50-5.90); White Blood Count 9.6 Thou/mm3 (3.8-10.6)
[2025-06-17 06:21] LABS: INR 1.1 (0.9-1.3); Partial Thromboplastin Time 29.2 Seconds (22.0-36.0); Prothrombin Time 11.4 Seconds (9.0-12.2)
[2025-06-17 06:27] LABS: Alanine Aminotransferase 16 U/L (10-49); Albumin, Serum 3.6 gm/dL (3.4-4.8); Albumin/Globulin Ratio 1.4 (1.2-2.2); Alkaline Phosphatase 121 U/L (46-116); Anion Gap 8 (7-16); Aspartate Amino Transferase 20 U/L (0-34); BUN/Creatinine Ratio 16 Ratio (12-20); Bilirubin,Total 0.8 mg/dL (0.3-1.2); Blood Urea Nitrogen 28 mg/dL (9-23); Calcium 8.5 mg/dL (8.3-10.6); Calcium (Corrected) 8.8 mg/dL (8.5-10.1); Carbon Dioxide 29.5 mMol/L (20.0-31.0); Chloride 103 mMol/L (98-107); Creatinine (Component) 1.8 mg/dL (0.6-1.3); Estimated Creatinine Clearance 27.6 mL/min (>60); Globulin 2.5 gm/dL (2.3-3.5); Glucose 103 mg/dL (74-106); Magnesium 2.3 mg/dL (1.6-2.6); Osmolality,Calculated 284 (275-295); Potassium 4.0 mMol/L (3.4-5.1); Sodium 140 mMol/L (136-145); Total Protein 6.1 gm/dL (5.7-8.2); eGFR 37 See Note
--- NOTE | 2025-06-17 07:51 | ESPR_ITS ---
<Statement entered by Radha Marquis MD - 06/19/25 16:37> I personally examined the patient post coronary angiogram patient did have multivessel CAD [place] coronary arteries are patent [place] RCA occluded however the vein graft RCA is also occluded which is new finding. Patient also had circumflex artery moderate disease supplying collaterals to the distal right coronary artery. Patient had selective origin of the LAD showed moderate proximal stenosis. Vein graft circumflex occluded. Filling pressures normal wedge pressure 25 hence diuretics have been withheld. Will start the patient Entresto instead of benazepril continue low-dose beta- gildardo despite heart rate in the 50s and continue amiodarone for now we will probably discharge home tomorrow if he feels well. Evaluated patient with resident physician agree with treatment plan recommendations documented Documentation for date of: 06/17/25 Subjective Subjective Interval history: No acute overnight events. Underwent left and right cardiac catheterization in the morning, of which graft for RCA was 100% occluded and possible LAD disease present. Please see operative report and A&P for details. Will discontinue lisinopril and start entresto 49/51 and resume aspirin and eliquis starting tomorrow. Last dose of lisinopril was 24 hours ago so appropriate wash out occurred and started entresto today. Otherwise, spoke to patient at bedside regarding findings and at this time will continue medical management as previously stated. Exam Vital Signs Temp Pulse Resp BP Pulse Ox O2 Del Method O2 Flow Rate 98.4 F 52 L 17 139/67 H 95 Room Air 2.5 06/17/25 07:00 06/17/25 07:00 06/17/25 07:00 06/17/25 07:00 06/17/25 07:00 06/17/25 07:00 06/17/25 04:00 Narrative Exam General: AOx3, no acute distress, able to speak full sentences HEENT: NC/AT, mucous membranes moist, bilateral sclera anicteric Cardiovascular: regular rate and rhythm, S1/S2 present, no murmurs appreciated Pulmonary: left-sided crackles at base, right side clear to auscultation, no rales/rhonchi/wheezes Abdominal: soft, non-tender, non-distended, no rebound/guarding, normal bowel sounds present Musculoskeletal: normal ROM, left lower extremity edema secondary to removal of veins for grafting Skin: warm and dry, intact, no rashes Neuro: CN II-XII intact, no focal deficits Objective Labs 06/17/25 05:03 06/17/25 05:03 Labs: Laboratory Results - last 24 hr 06/17/25 05:03 WBC 9.6 RBC 3.99 L Hgb 12.1 L Hct 37.2 L MCV 93 MCH 30.3 MCHC 32.5 RDW Std Deviation 55.0 H Plt Count 238 Neut % (Auto) 76 Lymph % (Auto) 10 [place] % (Auto) 13 H Eos % (Auto) 2 Baso % (Auto) 0 Neut # (Auto) 7.2 Lymph # (Auto) 0.9 L [place] # (Auto) 1.2 H Eos # (Auto) 0.2 Baso # (Auto) 0.0 Immature Gran # (Auto) 0.04 H Absolute Nucleated RBC 0.00 Immature Gran % 0 Nucleated RBC % 0 PT 11.4 INR 1.1 APTT 29.2 Sodium 140 Potassium 4.0 Chloride 103 Carbon Dioxide 29.5 Anion Gap 8 BUN 28 H Creatinine 1.8 H Estim Creat Clear Calc 27.6 L eGFR 37 L BUN/Creatinine Ratio 16 Glucose 103 Calculated Osmolality 284 Calcium 8.5 Corrected Calcium 8.8 Magnesium 2.3 Total Bilirubin 0.8 AST 20 ALT 16 Alkaline Phosphatase 121 H Total Protein 6.1 Albumin 3.6 Globulin 2.5 Albumin/Globulin Ratio 1.4 Quality Measures Quality Measures none Advance care planning discussed with:: patient and spouse Assessment & Plan Assessment Current Active Medications: Generic Name Dose Route Start Last Admin Trade Name Juanq PRN Reason Stop Dose Admin Allopurinol 100 mg 06/16/25 09:00 06/16/25 09:05 Allopurinol 100 Mg Tablet PO 07/16/25 08:59 100 mg QDAY INOCENTE Administration Amiodarone HCl 200 mg 06/15/25 13:15 06/16/25 09:06 Amiodarone Hcl 200 Mg Tablet PO 07/15/25 13:14 200 mg QDAY INOCENTE Administration Atorvastatin Calcium 80 mg 06/16/25 09:00 06/16/25 09:04 Atorvastatin Calcium 20 Mg Tablet PO 07/16/25 08:59 80 mg QDAY INOCENTE Administration Bumetanide 1 mg 06/15/25 21:15 06/17/25 06:04 Bumetanide Inj 0.25 Mg/Ml Vial 4 Ml IVP 07/15/25 21:14 Not Given On Hold: 06/17/25 07:45 BIDD INOCENTE Hydralazine HCl 50 mg 06/16/25 14:17 06/17/25 06:05 Hydralazine Hcl 25 Mg Tablet PO 07/15/25 13:59 Not Given TID INOCENTE Lisinopril 20 mg 06/15/25 13:30 06/16/25 20:56 Lisinopril 20 Mg Tablet PO 07/15/25 13:29 Not Given BID INOCENTE Metoprolol Succinate 25 mg 06/16/25 09:00 06/16/25 09:01 Metoprolol Succinate Xl 25 Mg Tabcr PO 07/16/25 08:59 25 mg QDAY INOCENTE Administration Nitroglycerin 0.4 mg 06/15/25 11:45 Nitroglycerin 0.4 Mg Subl Btl #25 SL 06/17/25 11:46 Q5MIN INOCENTE Ondansetron HCl 4 mg 06/15/25 09:19 Ondansetron Inj 2 Mg/Ml Inj 2 Ml IVP Q1HR PRN PERSISTENT NAUSEA OR VOMITING Pantoprazole Sodium 40 mg 06/15/25 13:20 06/16/25 09:05 Pantoprazole 40 Mg Tablet PO 07/15/25 13:19 40 mg QDAY INOCENTE Administration Paroxetine HCl 30 mg 06/16/25 09:00 06/16/25 09:01 Paroxetine Hcl 10 Mg Tablet PO 07/16/25 08:59 30 mg QDAY INOCENTE Administration Plan Heladio Boothe is an 84-year-old male with a significant cardiac history including CAD requiring CABG and additional stents, atrial fibrillation on amiodarone and eliquis, hyperlipidemia, and BPH who is admitted for ACS work-up vs CHF. #Acute coronary syndrome #New onset CHF secondary to ACS #History of CAD s/p CABG and stent placement Presents with acute onset chest discomfort and shortness of breath upon waking up in the morning. Was in usual state of health the day prior. EKG unremarkable other than old right bundle branch block and initial troponin is negative but BNP noted to be significantly elevated at 1700. Patient was given Lasix 80 mg IV x 1 in ED and had significant urine output of 2.8 L prior to being transferred to the floors with significant improvement in his shortness of breath. Given abrupt onset of symptoms and elevation in BNP and pulmonary edema seen on imaging, ischemic event is high on differential given his complex cardiac history despite normal troponin and EKG. Echo 06/15: Normal LV size, mild inferior and posterobasal hypokinesis with EF of 50%. Moderately dilated LA. Mild TR, mild MR. Pleural effusion present. ? Entresto 49/51 ? Aspirin 81 mg starting tomorrow, 06/18 ? Bumex held in light of TAMMY ? Strict I's and O's, daily weights #Atrial fibrillation ? Continue amiodarone 200 mg daily ? Eliquis 2.5 mg BID starting tomorrow, 06/18 #Hyperlipidemia ? Atorvastatin 80 mg daily #Hypertension ? Entresto 49/51 mg twice dialy ? Metoprolol succinate 25 mg daily ----- Plan discussed with attending physician Dr. Benitez Mckenzie MD PGY-2 Internal Medicine
--- NOTE | 2025-06-17 09:28 | ESPR_ITS ---
Documentation for date of: 06/17/25 Subjective Subjective Interval history: Informant and patient Mr. Boothe is an 84-year-old gentleman with extensive cardiac history of coronary artery disease, stents and angioplasty (under the care of Dr. 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 Patient do not recall having any high salty foods or [employer] restaurant foods. He is very strict on his diet. However due to low blood pressure recently his hydrochlorothiazide was discontinued. Patient stated his chest pain was substernal especially in the epigastric area. Denies any orthopnea. He has some swelling in the lower extremities. In the ED, EKG was negative for T wave or ST changes but did show a right bundle branch block that is not new. Chest x-ray showed significant vascular congestion. Labs showed BNP of 1700 and troponins negative x 2. He was given Lasix 80 mg IV x 1 and had approximately 2.8 L of urine output with significant improvement in his shortness of breath. Patient was admitted to telemetry. Dr. Andrews was consulted for CHF exacerbation. Due to his extensive cardiac history-Dr. Andrews ordered heparin drip although patient started to have hematuria and it was discontinued. He is started on Bumex 1 mg IV twice daily. Home medications included rosuvastatin, aspirin, calcitriol, benazepril, allopurinol, hydralazine, dutasteride, paroxetine, Protonix,Toprol, amiodarone, Eliquis, tamsulosin. SHx: Denies smoking, alcohol consumption, illicit drug use PSHx: CABG in 2003, stent placement x 2 in 2013, stent placement 2016, left knee repair 2018, back surgery 2023, angiogram 2023 Allergies: Sulfonamides and penicillin Patient in emergency department. at bedside. 06/17/2025 patient currently seen in telemetry. Status post angiogram. Please see details. Heart rate still seems to be low-holding metoprolol. On amiodarone. Blood pressure on the lower side at 106/60. Hold off on hydralazine and metoprolol. Noted lisinopril was switched to Entresto. Will be cautious with elevation in the creatinine. Dose decreased due to low blood pressure. Held the Bumex owing to his the recent contrast this morning. Hemoglobin 12.1. Sodium 140, potassium 4, BUN 28, creatinine 1.8, calcium 8.8, LFTs normal, albumin 3.6. Echocardiogram showed ejection fraction 50%. Review of Systems Review of Systems Narrative Review of Systems: CONSTITUTIONAL: Patient denies any fever, chills. Complaining of fatigue HEENT: Denies any visual disturbances or hearing problems. CARDIOVASCULAR: Patient Denies any chest pain, shortness of breath, swelling in the lower extremities. PULMONARY: Patient denies any shortness of breath, cough. GASTROINTESTINAL: Patient denies any abdominal pain, constipation, nausea, vomiting, diarrhea. GENITOURINARY: Patient denies any urinary symptoms of burning or frequency or hematuria, denies any form in the urine. SKIN: Denies any rash. MUSCULOSKELETAL: complaining of arthritis pains NEUROLOGICAL: Denies any neurological problems of strokes, seizures or confusion. Exam Vital Signs Temp Pulse Resp BP Pulse Ox O2 Del Method O2 Flow Rate 36.9 C 52 L 17 139/67 H 95 Room Air 2.5 06/17/25 07:00 06/17/25 07:00 06/17/25 07:00 06/17/25 07:00 06/17/25 07:00 06/17/25 07:00 06/17/25 04:00 Narrative Exam GENERAL APPEARANCE: Elderly gentleman currently seen in telemetry. NECK: Neck supple, no JVD or bruit CARDIOVASCULAR: Heart irregular, 2/6 murmurs LUNGS/CHEST: Fine crackles at bilateral bases ABDOMEN: Soft, nontender, nondistended. No masses. Normal bowel sounds. EXTREMITIES: Trace edema worse on the left side. SKIN: Skin exam normal without any rashes MUSCULOSKELETAL: In bed PSYCHIATRIC: Normal mood, affect LYMPHATICS: No lymphadenopathy noted NEUROLOGICAL : No neurological deficits Objective Labs 06/17/25 05:03 06/17/25 05:03 Labs: Laboratory Results - last 24 hr 06/17/25 05:03 WBC 9.6 RBC 3.99 L Hgb 12.1 L Hct 37.2 L MCV 93 MCH 30.3 MCHC 32.5 RDW Std Deviation 55.0 H Plt Count 238 Neut % (Auto) 76 Lymph % (Auto) 10 [place] % (Auto) 13 H Eos % (Auto) 2 Baso % (Auto) 0 Neut # (Auto) 7.2 Lymph # (Auto) 0.9 L [place] # (Auto) 1.2 H Eos # (Auto) 0.2 Baso # (Auto) 0.0 Immature Gran # (Auto) 0.04 H Absolute Nucleated RBC 0.00 Immature Gran % 0 Nucleated RBC % 0 PT 11.4 INR 1.1 APTT 29.2 Sodium 140 Potassium 4.0 Chloride 103 Carbon Dioxide 29.5 Anion Gap 8 BUN 28 H Creatinine 1.8 H Estim Creat Clear Calc 27.6 L eGFR 37 L BUN/Creatinine Ratio 16 Glucose 103 Calculated Osmolality 284 Calcium 8.5 Corrected Calcium 8.8 Magnesium 2.3 Total Bilirubin 0.8 AST 20 ALT 16 Alkaline Phosphatase 121 H Total Protein 6.1 Albumin 3.6 Globulin 2.5 Albumin/Globulin Ratio 1.4 Assessment & Plan Assessment and plan (1) Pulmonary edema: Status: Acute (2) Chest pain: Status: Acute (3) CAD (coronary artery disease) of artery bypass graft: Status: Chronic (4) Chronic kidney disease, stage III (moderate): Status: Acute (5) HLD (hyperlipidemia): Status: Acute (6) HTN (hypertension): Status: Acute (7) Atrial fibrillation: Status: Acute (8) Hx of coronary artery disease: Status: Acute Additional Assessment & Plan Additional Plan: (1) Pulmonary edema: Status: Acute Assessment and plan: Patient has acute diastolic congestive cardiac failure. Extensive cardiac history. Dr. Andrews was consulted. Agree with diuretics. However due to the recent angiogram this morning diuretics were held. Patient clinically seems to be compensated. Strict I&O's ordered. Echocardiogram showed ejection fraction 50% d. (2) Chest pain: Status: Acute Assessment and plan: Patient had angiogram today Heparin drip was discontinued due to hematuria. No further hematuria. (3) CAD (coronary artery disease) of artery bypass graft: Status: Chronic Assessment and plan: Extensive history of CABG, stents x 12-Dr. 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 Creatinine tad elevated. Hold the lisinopril (5) HLD (hyperlipidemia): Status: Acute Assessment and plan: On high intensity statin (6) HTN (hypertension): Status: Acute Assessment and plan: Blood pressure on the lower side. Adjusted medications (7) Atrial fibrillation: Status: Acute Assessment and plan: Patient was started on heparin drip-discontinued due to hematuria. Continue with amiodarone. Heart rate low-hold metoprolol (8) Hx of coronary artery disease: Status: Acute Assessment and plan: Dr. Andrews did cardiac cath this morning .Estimated length of stay 3 days DVT prophylaxis SCD GI prophylaxis pantoprazole CODE STATUS full code Disposition Home Plan of care discussed with Quality - progress note Quality Measures Quality Measures: VTE prophylaxis Reason for Continued Stay Reason for Continued Stay: further monitoring
--- NOTE | 2025-06-17 10:00 | PC.SS ---
SS met with patient who is alert/oriented. Patient was able to verify demographics. Patient states he resides with his . He is independent with ADL's. No DME. Patient was admitted for ChF. Patient states he's not on 02 at home. He is currently on 02 in hospital setting. Patient recently had a right total kneee replacement with Dr. Hillman. Patient has been following up with ProPT out patient therapy. He wants to continue. Notes indicated possible angio today. PCP: Dr. Gandhi. Cardiology: Dr. Andrews. Pharmacy: [facility]. Discharge plan is to return home. Alt medical decision maker: , Antonio Boothe, or [phone]
--- NOTE | 2025-06-17 12:40 | PC.NURSE ---
Patient transferred to tele via [facility]. Pt A&O x4. Dressings to right groin and wrist clean, dry, and intact.
[2025-06-17] MEDS: ATORVASTATIN CALCIUM 20 MG TABLET 80 MG PO (13:44)
[2025-06-17] MEDS: PANTOPRAZOLE 40 MG TABLET PO (13:45)
[2025-06-17] MEDS: AMIODARONE HCL 200 MG TABLET PO (13:45)
--- NOTE | 2025-06-17 19:40 | ESOP_ITS ---
RE: ALYSON GUILLAUME : 1940 DATE OF OPERATION: 06/17/2025 PROCEDURES PERFORMED: 1. Diagnostic right and left heart cardiac evaluation, selective coronary angiogram, left ventricular angiogram, CPT 84260. 2. Selective bypass graft angiogram. 3. Ultrasound guided access of right radial and femoral arteries. 4. Iliofemoral angiogram. DIAGNOSES: Ischemic cardiomyopathy, acutely decompensated systolic heart failure with acute pulmonary edema and acute coronary syndrome, chest pain. HISTORY AND INDICATION: The patient has no history of CAD stent placement. HISTORY AND INDICATIONS: The patient is an 85-year-old male with history of CAD, multiple bypass graft surgeries, and multiple coronary stent placements. He was admitted to the hospital with sudden onset with shortness of breath, acute pulmonary edema, acute systolic heart failure, ejection fraction 45% on cardiac echo and there was evidence the patient had chest discomfort and EKG changes. Hence, coronary angiogram was recommended. Bypass graft angiogram was recommended and right and left heart cardiac catheterization recommended. The patient is well compensated with heart failure. PROCEDURE DETAILS: The patient was brought to the cardiac catheterization laboratory. He was given conscious sedation. 2 mg of Versed for sedation and 100 mcg of fentanyl were given. Conscious sedation was for 45 minutes duration. The right radial approach was initially taken. The right radial artery was cannulated with micropuncture technique. A 6-Cymro Glidesheath was introduced. Brachial approach was also taken for right heart catheterization. Brachial approach of right heart catheterization was unsuccessful because of the tortuosity of the vein. Also, attempted left heart catheterization was performed via the right radial approach. There was extreme tortuosity, unable to pass the diagnostic catheter into the aorta and unable to manipulate it; hence we switched to femoral approach the right femoral artery. The femoral vein was cannulated by micropuncture technique. Ultrasound guidance was used. A 5 and 7-Cymro sheath was introduced. Right heart catheterization was performed [place] catheter. Right heart pressures were measured and cardiac output was obtained by thermodilution technique. Diagnostic left heart cardiac catheterization was performed by multiple 5-Cymro diagnostic catheters. Left ventricular angiogram was performed. Subsequently, selective bypass graft right coronary angiogram, left circumflex artery bypass grafts were then cannulated and bypass grafts were occluded. Subsequently, [place] left coronary angiogram was performed by using initially 5-Cymro JL4 diagnostic catheter, and subsequently a 5-Cymro JL5 diagnostic catheter for the circumflex artery. Multiple views were obtained. Subsequently iliofemiral angiogram was performed. The patient had no complications. Cardiac catheterization showed following findings: Right radial pressure was found to be 2 mmHg. Right ventricle pressure 29/3 mmHg. Pulmonary artery pressure 30/5 mmHg, mean 15 mmHg. Pulmonary artery wedge pressure was only 5 mmHg. The patient was clinically dry. Left ventricular pressure 149, EDP was 18. Aortic pressure was 152/58. No gradient across the aortic valve. Left ventricular angiogram showed evidence of inferior wall and inferolateral hypokinesis. Ejection fraction is approximately 40%. Coronary angiogram showed the following findings. Right coronary artery [place] RCA is totally occluded from previous angiogram. The vein graft to the right coronary artery is completely occluded. Left internal mammary artery. Previous angiogram showed very small JOSE to the LAD which is feeding only small distal vessel. Left coronary angiogram showed the following findings: There is a separate ostium for the LAD and circumflex artery. The left anterior descending artery has shown multiple stents in the ramus intermedius and the left anterior descending artery widely patent. The proximal left anterior descending artery just close to the origin showed evidence of what appears to be 50% stenosis. In one cranial view, it appears to be more like 60% to 70% stenosis with some streaming, but did not appear to be critical, but the vessel is small. The left circumflex artery has a separate ostium and showed a moderate 40% to 50% stenosis. It gives off posterolateral branches, which are feeding extensive collaterals to the distal right coronary artery. Obtuse marginal branch and circumflex artery are also visualized via collaterals. There is also a large ramus intermedius, which is also visualized via collaterals. SUMMARY FINDINGS ASSESSMENT: 1. Severe multivessel coronary artery disease with occluded bypass grafts to the RCA and circumflex artery. 2. Excellent collaterals from the circumflex artery to the right coronary artery. 3. Moderate left circumflex artery disease, 50% stenosis. 4. Moderate proximal left anterior descending artery stenosis in one view appears to be slightly moderate to severe. 4. Moderate left ventricular dysfunction with an ejection fraction of 40%. RECOMMENDATIONS: The patient will be continued on medical management. We will change the NICOLE inhibitor to Entresto. Despite having mild renal disease, I would like to give him Entresto 49/51 since the blood pressure is high, twice daily. We will monitor renal function closely. Since pressure is quite low in wedge pressure LVEDP is low, the patient is clinically dry, hence I will recommend stopping diuretics today. We will restart him on an oral diuretic, probably 1 mg bumetanide daily from tomorrow for maintenance. My goal is to give maximum medical management with Entresto for heart failure and beta-gildardo, metoprolol succinate, to be continued. If he has significant worsening of shortness of breath, congestive heart failure, or recurrent episodes of ischemia, we will consider doing possible intervention for the LAD with left ventricular assist device placement. It cannot be performed unprotected PCI because there are only two vessels feeding in the entire system and one of them is the left anterior descending artery. As for the anticoagulation regimen, we will resume Eliquis 5 mg twice daily starting tomorrow and possibly low-dose aspirin 81 mg daily. DT: 18:27:26 TT: 19:26:00 Ref: [id number] - TID: [id number] MTDD
[2025-06-18] VITALS: BP 124/66; PULSE 50; PULSE 56; RESP 19; TEMP 36.8; O2SAT 95
[2025-06-18 04:00] VITALS: BP 105/59; PULSE 58; PULSE 61; RESP 14; TEMP 36.4; O2SAT 96
[2025-06-18 05:21] VITALS: BMI 25.4
[2025-06-18 05:44] LABS: Basophils # (Auto) 0.0 Thou/mm3 (0.0-0.2); Basophils % (Auto) 0 % (0-2.5); Eosinophils # (Auto) 0.2 Thou/mm3 (0.0-0.5); Eosinophils % (Auto) 2 % (0-10); Hematocrit 37.1 % (41.0-53.0); Hemoglobin 12.4 g/dL (13.5-16.0); Immature Granulocytes Auto 0.07 Thou/mm3 (0.00-0.00); Lymphocytes # (Auto) 0.9 Thou/mm3 (1.0-4.8); Lymphocytes % (Auto) 10 % (10-50); Mean Corpuscular HGB Conc 33.4 g/dl (31.0-37.0); Mean Corpuscular Hemoglobin 30.9 pg (25.0-35.0); Mean Corpuscular Volume 93 fL (80-100); Monocytes # (Auto) 1.1 Thou/mm3 (0.0-0.8); Monocytes % (Auto) 11 % (0-12); Neutrophils # (Auto) 7.3 Thou/mm3 (1.8-7.7); Neutrophils % (Auto) 76 % (37-80); Nucleated Red Blood Cell # 0.00 Thou/mm3 (0.00-0.00); Nucleated Red Blood Cell % 0 /100 WBC (0); Platelet Count 259 Thou/mm3 (140-440); RDW Standard Deviation 55.2 fL (35.1-43.9); Red Blood Count 4.01 Miln/mm3 (4.50-5.90); White Blood Count 9.6 Thou/mm3 (3.8-10.6)
[2025-06-18 06:25] LABS: Alanine Aminotransferase 13 U/L (10-49); Albumin, Serum 3.5 gm/dL (3.4-4.8); Albumin/Globulin Ratio 1.5 (1.2-2.2); Alkaline Phosphatase 116 U/L (46-116); Anion Gap 9 (7-16); Aspartate Amino Transferase 16 U/L (0-34); BUN/Creatinine Ratio 18 Ratio (12-20); Bilirubin,Total 0.7 mg/dL (0.3-1.2); Blood Urea Nitrogen 27 mg/dL (9-23); Calcium 8.5 mg/dL (8.3-10.6); Calcium (Corrected) 8.9 mg/dL (8.5-10.1); Carbon Dioxide 26.3 mMol/L (20.0-31.0); Chloride 106 mMol/L (98-107); Creatinine (Component) 1.5 mg/dL (0.6-1.3); Estimated Creatinine Clearance 33.1 mL/min (>60); Globulin 2.4 gm/dL (2.3-3.5); Glucose 103 mg/dL (74-106); Magnesium 2.2 mg/dL (1.6-2.6); Osmolality,Calculated 286 (275-295); Potassium 4.1 mMol/L (3.4-5.1); Sodium 141 mMol/L (136-145); Total Protein 5.9 gm/dL (5.7-8.2); eGFR 46 See Note
[2025-06-18 08:00] VITALS: BP 132/80; PULSE 53; PULSE 55; RESP 16; TEMP 36.7; O2SAT 95
[2025-06-18] MEDS: ASPIRIN 81 MG CHEW PO (08:28)
[2025-06-18] MEDS: PANTOPRAZOLE 40 MG TABLET PO (08:29)
[2025-06-18] MEDS: ATORVASTATIN CALCIUM 20 MG TABLET 80 MG PO (08:29)
[2025-06-18] MEDS: APIXABAN 2.5 MG TABLET PO (08:29)
[2025-06-18 08:35] VITALS: BP 132/80; PULSE 53
[2025-06-18] MEDS: AMIODARONE HCL 200 MG TABLET PO (08:35)
--- NOTE | 2025-06-18 11:51 | ESDS_ITS ---
Planned Discharge Date 06/18/25 DS: Providers Provider Date of admission: 06/15/25 15:11 Primary care physician: Kevin Gandhi MD Admitting Provider: Kevin Gandhi MD Attending Provider on Admission: Kevin Gandhi MD Consults: 06/15/25 15:13 Consult to Cardiology Stat Comment: CHF Consulting Provider: Radha Marquis Instructions: notified Attending Provider on DC: Kevin Gandhi MD Discharging Provider: Alec Medina MD DS: Diagnosis Problem List Completed Was Problem List Reviewed/Reconciled?: Yes Hospital Course Hospital Course Hospital course: 84-year-old gentleman with a complex cardiac history including coronary artery disease status post CABG and multiple stents, atrial fibrillation on amiodarone and Eliquis, hypertension, hyperlipidemia, 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 In the emergency department, EKG demonstrated a chronic right bundle branch block without acute ischemic changes. Chest X-ray showed pulmonary vascular c ongestion, BNP was elevated at 1700, and serial troponins were negative. The patient was given 80 mg of intravenous Lasix with a total urine output of 2.8 liters and significant improvement in dyspnea. Given his extensive cardiac history, cardiology was consulted (Dr. Ricardo Marquis), and the patient was admitted to telemetry for further management of acute decompensated heart failure and to rule out ischemic etiology. He was started on intravenous Bumex 1 mg twice daily with a negative fluid balance greater than two liters. Anticoagulation with heparin was initiated due to concern for an ischemic event but discontinued after the patient developed hematuria. Eliquis and aspirin were held temporarily. An echocardiogram performed on 06/15/2025 showed a normal left ventricular size with mild inferior and posterobasal hypokinesis, an ejection fraction of 50%, mild mitral and tricuspid regurgitation, and a moderately dilated left atrium. On 06/17/2025, the patient underwent right and left heart catheterization which revealed severe multivessel coronary artery disease with occluded grafts to the right coronary and circumflex arteries, moderate proximal LAD stenosis (50?70%), and moderate left circumflex stenosis (40?50%). Left ventricular angiography demonstrated an ejection fraction of approximately 40% with inferior and inferolateral wall hypokinesis. Given the anatomy and the presence of extensive collateral flow, the decision was made to pursue medical management rather than percutaneous intervention. Following the procedure, lisinopril was discontinued and replaced with Entresto 24/26 mg twice daily after an appropriate washout period. Bumex was held temporarily due to mild contrast-associated acute kidney injury, with creatinine increasing from 1.4 to 1.8 mg/dL. The patient remained hemodynamically stable with blood pressures in the low-normal range and improved respiratory status. Metoprolol dosage was reduced from 50 mg to 25 mg daily due to bradycardia, and other home medications were reconciled appropriately. By discharge, patient was clinically euvolemic, breathing comfortably on room air, and denied chest pain or orthopnea. His hematuria had resolved, and renal function was stable. He was transitioned to oral diuretic therapy and optimized on guideline-directed medical therapy for heart failure with Entresto, metoprolol, and statin therapy. Discharge plans and medication adjustments were reviewed with the patient and his , who verbalized understanding. Follow-up with cardiology was arranged for one to two week post-discharge, with primary care and nephrology follow-up in one to two weeks for renal and blood pressure monitoring. 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 Activity as tolerated; avoid heavy exertion until cleared by cardiology. -Monitoring: Check BP and HR at home; maintain BP <140/90, HR <80 at rest. Monitor for edema, shortness of breath, or chest pain and report any worsening symptoms. -Medications & Safety: Take all medications exactly as prescribed. Do not restart any stopped medications (HCTZ, benazepril, pantoprazole, methylprednisone) unless advised by your physician. Focus on adherence to heart failure medications (Entresto, metoprolol, Eliquis, amiodarone, furosemide, hydralazine). -Follow-Up: Cardiology (Dr. Ricardo Marquis): within 1-2 week for medication titration and review of cardiac cath results. Primary Care / Nephrology: within 1?2 weeks for blood pressure and renal monitoring. -Education & Prevention: Maintain low-sodium diet, medication compliance, and daily symptom log. Goal: prevent readmission and maintain euvolemia. Call or return to ED for worsening dyspnea, chest pain, dizziness, palpitations, or any bleeding. ----- Plan discussed with attending physician Dr. Hiram Medina MD PGY-1 Internal Medicine Time Spent with Patient Time attestation: Total time spent providing and/or coordinating discharge services: Time spent: Greater than 30 minutes Exam Vital Signs Temp Pulse Resp BP Pulse Ox O2 Del Method O2 Flow Rate 98.0 F 53 L 16 132/80 H 95 Room Air 2.5 06/18/25 08:00 06/18/25 08:35 06/18/25 08:00 06/18/25 08:35 06/18/25 08:00 06/18/25 08:00 06/17/25 16:00 Narrative Exam General: Elderly male, alert, oriented ?3, in no acute distress HEENT: No icterus, MMM Neck: No JVD, no carotid bruit CV: Irregularly irregular rhythm, soft 2/6 systolic murmur, no gallop Lungs: Clear to auscultation bilaterally, no rales or wheezes Abdomen: Soft, non-tender, no organomegaly Extremities: Trace bilateral edema, pulses palpable Neuro: No focal deficits Skin: Warm, dry, intact Discharge Plan Plan Patient Disposition: HOME (Self Care) Care Plan Goals: -Diet & Activity: Follow a cardiac diet, low sodium and fluid restriction 2 L/day. Activity as tolerated; avoid heavy exertion until cleared by cardiology. -Monitoring: Check BP and HR at home; maintain BP <140/90, HR <80 at rest. Monitor for edema, shortness of breath, or chest pain and report any worsening symptoms. -Medications & Safety: Take all medications exactly as prescribed. Do not restart any stopped medications (HCTZ, benazepril, pantoprazole, methylprednisone) unless advised by your physician. Focus on adherence to heart failure medications (Entresto, metoprolol, Eliquis, amiodarone, furosemide, hydralazine). -Follow-Up: Cardiology (Dr. Ricardo Marquis): within 1-2 week for medication titration and review of cardiac cath results. Primary Care / Nephrology: within 1?2 weeks for blood pressure and renal monitoring. -Education & Prevention: Maintain low-sodium diet, medication compliance, and daily symptom log. Goal: prevent readmission and maintain euvolemia. Call or return to ED for worsening dyspnea, chest pain, dizziness, palpitations, or any bleeding. Prescriptions/Referrals Prescriptions/Med Rec: New metoprolol succinate 25 mg Tablet Extended Release 24 Hr 25 mg PO QDAY Qty: 30 0RF sacubitril-valsartan 24-26 mg Tablet 1 tab PO BID Qty: 60 0RF furosemide [Lasix] 20 mg tablet 20 mg PO Q OTHER DAY Qty: 30 0RF Continued dutasteride [Avodart] 0.5 mg capsule 0.5 mg PO QDAY paroxetine HCl 30 MG tablet 30 mg PO QDAY Qty: 0 calcitriol 0.5 MCG capsule 0.5 mcg PO HS Qty: 90 hydralazine 50 mg tablet 50 mg PO DAILY Patient Comments: TAKE 1 TABLET BY MOUTH EVERY DAY IN THE EVENING rosuvastatin 20 mg tablet 20 mg PO HS Patient Comments: TAKE 1 TABLET BY MOUTH EVERY DAY aspirin 81 mg Tablet,Chewable 81 mg PO DAILY Qty: 1 0RF amiodarone 200 mg tablet 200 mg PO DAILY allopurinol 100 mg tablet 100 mg PO 1XD Patient Comments: TAKE 1 TABLET BY MOUTH EVERY DAY Eliquis 5 mg Tablet 2.5 mg PO BID tamsulosin 0.4 mg Capsule 0.4 mg PO QDAY 30 Days Qty: 30 2RF Discontinued ropivacaine (PF) 2 mg/mL (0.2 %) solution 20 ml Infiltration X1 Qty: 20 0RF methylprednisolone acetate 80 mg/mL suspension 80 mg intra-articular X1 Qty: 1 0RF benazepril 20 mg Tablet 20 mg PO QDAY Qty: 0 pantoprazole 40 mg Tablet,Delayed Release (Dr/Ec) 40 mg PO QDAY Qty: 90 hydrochlorothiazide 12.5 mg Capsule 12.5 mg PO QDAY metoprolol succinate 50 mg Tablet Extended Release 24 Hr 50 mg PO QDAY levofloxacin 250 mg tablet 250 mg PO QDAY Qty: 10 0RF Rx Instructions: Take 1 tablet daily for 10 days Referrals: Kevin Gandhi MD [Primary Care Provider, Nephrology] Patient/Caregiver Discharge Instructions Discharge Activity: activity as tolerated Education Materials: Coronary Angiography, Heart Failure Dc Print Language: [place]ic Activity Restrictions/Additional Instructions: f/u with Dr. Gandhi in 1-2 weeks f/u with Dr. lee in 1-2 weeks Stand Alone Forms: Rhonda Award Info., Patient Portal Info Letter Discharge Order Discharge Orders: Discharge (Routine); Ordered 06/18/25 Ordered By: Kevin Gandhi Quality Discharge Quality Measures VTE prophylaxis MD Attestestation MD Attestation Patient seen and examined with resident physician Dr. Medina. Note reviewed, agree with findings and recommendations.
[2025-06-18 12:00] VITALS: BP 111/54; PULSE 44; PULSE 49; RESP 18; TEMP 36.3; O2SAT 95
--- NOTE | 2025-06-18 13:25 | ESPR_ITS ---
RE: ALYSON GUILLAUME : 1940 DATE OF SERVICE: 06/18/2025 DATE OF SERVICE: 06/18/2025. SUBJECTIVE: The patient is doing fairly well. No chest pain or shortness of breath. 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 The only vessel that is patent is left anterior descending artery as well that showed moderate disease in the proximal segment. Multiple vessels are seen distally with no disease. JOSE LAD was not performed, but it is very small and rudimentary. Left ventricular function, moderate decreased ejection fraction 40% inferior hypokinesis. Right heart pressures were normal. No evidence of heart failure. RECOMMENDATIONS: The patient recommended medical management. Discharge the patient on low-dose Entresto twice daily, Eliquis 2.0, amiodarone 200 daily, and along with Lasix 20 mg daily. I will see him for followup within 1 week. DT: 12:13:16 TT: 13:23:00 Ref: [id number] - TID: [id number]
[2025-06-18 13:35] VITALS: BP 117/64; PULSE 51; RESP 17; TEMP 36.3; O2SAT 94
== END 2025-06-18 13:53 | disposition home or self-care (01) | DRG 302 ==
LOC: SERX 12:21 → SERHOLD 15:28 → S2NX 16:43
PROVIDERS: Internal Medicine Cardiovascular Disease; Admitting Provider Internal Medicine; Emergency Provider Family Medicine; PCP Internal Medicine; Visit Provider Internal Medicine
DX: I25.810 Atherosclerosis of coronary artery bypass graft(s) without angina pectoris (principal); I50.43 Acute on chronic combined systolic (congestive) and diastolic (congestive) heart failure; I13.0 Hypertensive heart and chronic kidney disease with heart failure and stage 1 through stage 4 chronic kidney disease, or unspecified chronic kidney disease; N17.9 Acute kidney failure, unspecified; R07.2 Precordial pain; E78.5 Hyperlipidemia, unspecified; I25.82 Chronic total occlusion of coronary artery; I48.91 Unspecified atrial fibrillation; N40.0 Benign prostatic hyperplasia without lower urinary tract symptoms; M10.9 Gout, unspecified; N18.32 Chronic kidney disease, stage 3b; I45.10 Unspecified right bundle-branch block; I25.5 Ischemic cardiomyopathy; I48.0 Paroxysmal atrial fibrillation; D47.2 Monoclonal gammopathy; Z79.01 Long term (current) use of anticoagulants; Z79.899 Other long term (current) drug therapy; Z87.440 Personal history of urinary (tract) infections; Z95.5 Presence of coronary angioplasty implant and graft
CPT/HCPCS: 36415; 71045; 80053; 80061; 81001; 83036; 83735; 83880; 84484; 85025; 85610; 85730; 87811; 93005; 93306; 96365; 96375; 99152; 99153; 99284; A4649; C1769; C1887; C1894; J0153; J0168; J0282; J0461; J1643; J1644; J1938; J2250; J2312; J2371; J3010; J3475; J3490; Q9967; A9270; C1725; J2305

== ENCOUNTER → 2025-07-18 | Outpatient (CLI) | payer MEDICARE, BC, SELFPAY ==
[2025-07-18 15:36] LABS: Collection Type, Urine Clean Catch; Squamous Epithelial Cell,Urine 0 /hpf (0-5)
[2025-07-18 16:26] LABS: Basophils # (Auto) 0.0 Thou/mm3 (0.0-0.2); Basophils % (Auto) 0 % (0-2.5); Eosinophils # (Auto) 0.1 Thou/mm3 (0.0-0.5); Eosinophils % (Auto) 1 % (0-10); Hematocrit 37.5 % (41.0-53.0); Hemoglobin 12.3 g/dL (13.5-16.0); Immature Granulocytes Auto 0.02 Thou/mm3 (0.00-0.00); Lymphocytes # (Auto) 0.8 Thou/mm3 (1.0-4.8); Lymphocytes % (Auto) 11 % (10-50); Mean Corpuscular HGB Conc 32.8 g/dl (31.0-37.0); Mean Corpuscular Hemoglobin 30.8 pg (25.0-35.0); Mean Corpuscular Volume 94 fL (80-100); Monocytes # (Auto) 0.9 Thou/mm3 (0.0-0.8); Monocytes % (Auto) 12 % (0-12); Neutrophils # (Auto) 5.2 Thou/mm3 (1.8-7.7); Neutrophils % (Auto) 74 % (37-80); Nucleated Red Blood Cell # 0.00 Thou/mm3 (0.00-0.00); Nucleated Red Blood Cell % 0 /100 WBC (0); Platelet Count 265 Thou/mm3 (140-440); RDW Standard Deviation 54.1 fL (35.1-43.9); Red Blood Count 4.00 Miln/mm3 (4.50-5.90); White Blood Count 6.9 Thou/mm3 (3.8-10.6)
[2025-07-18 16:30] LABS: Bilirubin,Urine Negative (Negative); Blood,Urine Negative (Negative); Clarity,Urine Clear (Clear/Hazy); Color,Urine Yellow (Lt Yel-Yel); Glucose, Urine Negative (Negative); Ketones,Urine Negative (Negative); Leukocyte Esterase,Urine Negative (Negative); Nitrite,Urine Negative (Negative); PH,Urine 5.5 (5.0-7.0); Protein,Urine Negative (Neg - Trace); RBC,Urine 3 /hpf (0-3); Specific Gravity,Urine 1.024 (1.001-1.035); Urobilinogen,Urine Negative mg/dL (0.0-1.0); WBC,Urine 1 /hpf (0-5)
[2025-07-18 16:43] LABS: Albumin, Serum 3.8 gm/dL (3.4-4.8); Anion Gap 9 (7-16); BUN/Creatinine Ratio 17 Ratio (12-20); Blood Urea Nitrogen 25 mg/dL (9-23); Calcium 9.1 mg/dL (8.3-10.6); Calcium (Corrected) 9.3 mg/dL (8.5-10.1); Carbon Dioxide 26.5 mMol/L (20.0-31.0); Chloride 111 mMol/L (98-107); Creatinine (Component) 1.5 mg/dL (0.6-1.3); Glucose 119 mg/dL (74-106); Osmolality,Calculated 295 (275-295); Phosphorous 4.1 mg/dL (2.4-5.1); Potassium 4.5 mMol/L (3.4-5.1); Sodium 146 mMol/L (136-145); eGFR 46 See Note
== END | disposition home or self-care (01) ==
LOC: COPL 15:14
PROVIDERS: PCP Internal Medicine; Referring Provider Internal Medicine Cardiovascular Disease; Visit Provider Internal Medicine
DX: I12.9 Hypertensive chronic kidney disease with stage 1 through stage 4 chronic kidney disease, or unspecified chronic kidney disease (principal); N18.30 Chronic kidney disease, stage 3 unspecified
CPT/HCPCS: 36415; 80069; 81001; 85025